=== PATIENT | female | born 1955 | race African-American/Black ===

== ENCOUNTER 2016-11-18 12:39 | Inpatient (IN) | payer OTHER ==
[2016-11-18 13:38] VITALS: BMI 25.4
--- NOTE | 2016-11-18 15:39 | HP ---
COWS - Scale Resting Pulse: 0= [place] 80 or Below Sweatin=Flushed/Facial Moisture Restless Observation: 0= Sits Still Pupil Size: 0= Normal to Room Light Bone or Joint Aches: 2= Severe Diffuse Aches Runny Nose/ Eye Tearin= Runny Nose/Eyes GI Upset > 30mins: 1= Stomach Cramp Tremor Observation: 2= Slight Tremor Visible Yawning Observation: 2= >3x During Session Anxiety or Irritability: 2=Irritable/Anxious Goose Flesh Skin: 3=Piloerection COWS Score: 16 CIWA Score - CIWA Score Nausea/Vomitin-No Nausea/No Vomiting Muscle Tremors: 4-Moderate,w/Arms Extend Anxiety: 4-Mod. Anxious/Guarded Agitation: 4-Moderately Restless Paroxysmal Sweats: 3 Orientation: 0-Oriented Tacttile Disturbances: 0-None Auditory Disturbances: 0-None Visual Disturbances: 0-None Headache: 1-Very Mild CIWA-Ar Total Score: 16 Admission ROS BHS - HPI Chief Complaint: I need to stop using and get cleaned. Allergies/Adverse Reactions: Allergies Allergy/AdvReac Type Severity Reaction Status Date / Time No Known Allergies Allergy Verified 11/18/16 13:57 History of Present Illness: pt is a 60yr old female with a history of alcohol and heroin dependence seeking detox for treatment. Exam Limitations: No Limitations - Ebola screening Have you traveled outside of the country in the last 21 days: No Have you had contact with anyone from an Ebola affected area: No Have you been sick,other than usual withdrawal symptoms: No Do you have a fever: No - Review of Systems Constitutional: Chills, Diaphoresis, Loss of Appetite, Changes in sleep, Unintentional Wgt. Loss EENT: reports: Tearing, Nose Congestion Respiratory: reports: No Symptoms reported Cardiac: reports: Syncope GI: reports: Constipated, Diarrhea, Nausea, Poor Appetite, Poor Fluid Intake, Indigestion : reports: No Symptoms Reported Musculoskeletal: reports: Back Pain, Joint Pain Integumentary: reports: Flushing, Sweating Neuro: reports: Headache, Tingling, Tremors Endocrine: reports: Excessive Sweating, Flushing, Intolerance to Cold, Intolerance to Heat Hematology: reports: No Symptoms Reported Psychiatric: reports: Judgement Intact, Orientated x3, Agitated, Anxious Other Systems: Reviewed and Negative Patient History - Patient Medical History Hx Anemia: No Hx Asthma: Yes Hx Chronic Obstructive Pulmonary Disease (COPD): No Hx Cancer: No Hx Cardiac Disorders: No Hx Congestive Heart Failure: No Hx Hypertension: Yes Hx Hypercholesterolemia: Yes Hx Pacemaker: No HX Cerebrovascular Accident: No Hx Seizures: No Hx Dementia: No Hx Diabetes: No Hx Gastrointestinal Disorders: No Hx Liver Disease: No Hx Genitourinary Disorders: No Hx Sexually Transmitted Disorders: No Hx Renal Disease (ESRD): No Hx Thyroid Disease: No Hx Human Immunodeficiency Virus (HIV): No (negative) Hx Hepatitis C: No (negative) Hx Depression: Yes Hx Suicide Attempt: Yes (10 yrs ago) Hx Bipolar Disorder: Yes Hx Schizophrenia: No - Patient Surgical History Past Surgical History: No - PPD History Previous Implant?: Yes Documented Results: Negative w/o proof Implanted On Prior [facility] Admission?: No PPD to be Administered?: Yes - Reproductive History Patient is a Female of Child Bearing Age (11 -55 yrs old): Yes LMP comment: age 56 Patient : No - Smoking Cessation Smoking history: Current every day smoker Aproximately how many cigarettes per day: 20 Hx Chewing Tobacco Use: No Initiated information on smoking cessation: Yes 'Breaking Loose' booklet given: 11/18/16 - Substance & Tx. History Hx Alcohol Use: Yes Hx Substance Use: Yes Substance Use Type: Alcohol, Heroin - Substances Abused Heroin Route: Inhalation Frequency: Daily Amount used: 1 bag Age of first use: 60 Date of Last Use: 11/17/16 Alcohol Route: Oral Frequency: Daily Amount used: beer(6-24 oz cans) Age of first use: 15 Date of Last Use: 11/18/16 Family Disease History - Family Disease History Family Disease History: Diabetes: Father (), CA: Mother (breast CA ), Other: Father Admission Physical Exam BHS - Vital Signs Vital Signs: Vital Signs - 24 hr 11/18/16 13:33 Temperature 97 F L Pulse Rate 76 Respiratory 20 Rate Blood Pressure 126/80 - Physical General Appearance: Yes: Appropriately Dressed, Moderate Distress, Thin, Tremorous, Irritable, Sweating, Anxious HEENTM: Yes: Hearing grossly Normal, Normal Voice, Nasal Congestion Respiratory: Yes: Lungs Clear, Normal Breath Sounds, No Respiratory Distress Neck: Yes: No masses,lesions,Nodules Breast: Yes: Within Normal Limits Cardiology: Yes: Regular Rhythm, Regular Rate, S1, S2 Abdominal: Yes: Normal Bowel Sounds, Non Tender, Soft Genitourinary: Yes: Within Normal Limits Back: Yes: Normal Inspection Musculoskeletal: Yes: full range of Motion, Back pain Extremities: Yes: Normal Capillary Refill, Normal Inspection, Non-Tender, Tremors Neurological: Yes: Fully Oriented, Alert, Normal Response Integumentary: Yes: Normal Color, Diaphoresis Lymphatic: Yes: Within Normal Limits - Diagnostic (1) Alcohol dependence with uncomplicated withdrawal Current Visit: Yes Status: Chronic (2) Asthma Current Visit: Yes Status: Chronic Qualifiers: Asthma severity: mild intermittent Asthma complication type: uncomplicated Qualified Code(s): J45.20 - Mild intermittent asthma, uncomplicated (3) Hyperlipidemia Current Visit: Yes Status: Chronic Qualifiers: Hyperlipidemia type: pure hypercholesterolemia Qualified Code(s): E78.00 - Pure hypercholesterolemia, unspecified; E78.0 - Pure hypercholesterolemia (4) Hypertension Current Visit: Yes Status: Chronic Qualifiers: Hypertension type: essential hypertension Qualified Code(s): I10 - Essential (primary) hypertension (5) Nicotine dependence Current Visit: Yes Status: Chronic Qualifiers: Nicotine product type: cigarettes Substance use status: uncomplicated Qualified Code(s): F17.210 - Nicotine dependence, cigarettes, uncomplicated (6) Opioid dependence with withdrawal Current Visit: Yes Status: Chronic Comment: even though pt has been using one bag daily she seems to be urging for the need to use heroin so she needs the methadone for detox. Cleared for Admission [facility] - Detox or Rehab [facility] Level of Care: Medically Managed Detox Regimen/Protocol: Methadone/Librium [facility] Breath Alcohol Content Breath Alcohol Content: 0.016 Urine Pregancy Test - Result Urine Test Results: Negative- NO Line Present Urine Drug Screen - Results Drug Screen Negative: No Urine Drug Screen Results: SEVEN-Cocaine, OPI-Opiates, MTD-Methadone, OXY- Oxycodone
[2016-11-18] MEDS ORDERED: MAG HYDROX/AL HYDROX/SIMETH 30 ML UNIT-DOSE CUP PO PRN (15:47)
[2016-11-18] MEDS ORDERED: MAGNESIUM CITRATE 300 ML BOTTLE PO PRN (15:47)
[2016-11-18] MEDS ORDERED: IBUPROFEN 400 MG TABLET (FP) PO PRN (15:47)
[2016-11-18] MEDS ORDERED: ACETAMINOPHEN 325 MG TABLET (FP) PO PRN (15:47)
[2016-11-18] MEDS ORDERED: MENTHOL/PHENOL 1 EACH UD MM PRN (15:47)
[2016-11-18] MEDS ORDERED: METHADONE HCL 10 MG TABLET (FOR DETOX USE ONLY) PO ONE ×2 (15:47→23:00)
[2016-11-18] MEDS ORDERED: chlordiazePOXIDE HCL 25 MG CAPSULE PO PRN (15:47)
[2016-11-18] MEDS ORDERED: guaiFENesin/D-METHORPHAN HB 10 ML UNIT-DOSE CUPS PO PRN (15:47)
[2016-11-18] MEDS ORDERED: MAGNESIUM HYDROX 2400MG/30ML ORAL SUSPENSION 30 ML CUP PO PRN (15:47)
[2016-11-18] MEDS ORDERED: LOPERAMIDE HCL 2 MG CAPSULE PO PRN (15:47)
[2016-11-18] MEDS ORDERED: P-EPHED 60MG/TRIPROLIDI 2.5MG TABLET PO PRN (15:47)
[2016-11-18] MEDS ORDERED: ALBUTEROL SO4 6.7 GM HFA INHALER IH PRN (15:51)
[2016-11-18] MEDS ORDERED: chlordiazePOXIDE HCL 25 MG CAPSULE PO ONE (16:00)
[2016-11-18] MEDS: chlordiazePOXIDE HCL 25 MG CAPSULE PO SCH ×2 (18:37→23:04)
[2016-11-18 19:58] LABS: URINE APPEARANCE CLEAR; URINE BILIRUBIN NEGATIVE (NEGATIVE); URINE COLOR LTYELLOW; URINE GLUCOSE (UA) NEGATIVE (NEGATIVE); URINE KETONE NEGATIVE (NEGATIVE); URINE LEUK ESTERASE NEGATIVE (NEGATIVE); URINE NITRITE POSITIVE (NEGATIVE); URINE PROTEIN NEGATIVE (NEGATIVE); URINE UROBILINOGEN NEGATIVE E.U./dl (0.2-1.0)
[2016-11-18 20:10] LABS: URINE BLOOD 1+ (NEGATIVE)
[2016-11-18 20:12] LABS: URINE BACTERIA MANY /hpf (NONE SEEN); URINE MUCUS RARE; URINE RBC 11 /hpf (0-3); URINE WBC 1 /hpf (3-5)
[2016-11-18] MEDS: ATORVASTATIN CA 40 MG TABLET (FP) PO SCH (23:03)
[2016-11-18] MEDS: BUDESONIDE/FORMETEROL FUMARATE 80/4.5 mcg INHALER IH SCH (23:03)
[2016-11-18] MEDS: THIAMINE HCL 100 MG TABLET (FP) PO SCH (23:07)
[2016-11-19] MEDS: chlordiazePOXIDE HCL 25 MG CAPSULE PO SCH ×4 (06:03→23:19)
[2016-11-19] MEDS ORDERED: METHADONE HCL 10 MG TABLET (FOR DETOX USE ONLY) PO SCH (10:00)
[2016-11-19 10:35] LABS: MCH 30.8 pg (25.7-33.7); MCHC 33.1 g/dl (32.0-36.0); MEAN CELL VOLUME 93.1 fl (80-96); MEAN PLT VOLUME 9.1 fl (7.5-11.1); PLATELET COUNT 271 K/MM3 (134-434); RDW 13.1 % (11.6-15.6); WHITE BLOOD COUNT 5.5 K/mm3 (4.0-10.0)
[2016-11-19] MEDS: BUDESONIDE/FORMETEROL FUMARATE 80/4.5 mcg INHALER IH SCH ×2 (11:47→23:19)
[2016-11-19] MEDS: PRENATAL VITAMINS W/ FOLIC ACID TABLET (FP) PO SCH (11:48)
[2016-11-19] MEDS: amLODIPine BESYLATE 10 MG TABLET (FP) PO SCH (11:48)
[2016-11-19] MEDS: NICOTINE 21 MG/24 HOURS TOPICAL PATCH TD SCH (11:49)
[2016-11-19 11:56] LABS: ALBUMIN 2.9 g/dl (3.4-5.0); ANION GAP 8 (8-16); CALCIUM 8.9 mg/dL (8.5-10.1); CO2 27 mmol/L (21-32); CREATININE 0.8 mg/dL (0.55-1.02); GLUCOSE,RANDOM 132 mg/dL (74-106); SGOT/AST 39 U/L (15-37); SGPT/ALT 26 U/L (12-78)
[2016-11-19 11:57] LABS: ALK PHOS 67 U/L (45-117); BILIRUBIN,TOTAL 0.4 mg/dL (0.2-1.0); TOT PROT 6.3 g/dl (6.4-8.2)
--- NOTE | 2016-11-19 14:53 | PN ---
S CIWA - CIWA Score Nausea/Vomitin Muscle Tremors: 3 Anxiety: 3 Agitation: 2 Paroxysmal Sweats: 1-Minimal Palms Moist Orientation: 0-Oriented Tacttile Disturbances: 1-Very Mild Itch/Numbness Auditory Disturbances: 1-Very Mild Visual Disturbances: 1-Very Mild Sensitivity Headache: 2-Mild CIWA-Ar Total Score: 17 BHS COWS - Scale Resting Pulse: 0= [place] 80 or Below Sweatin= Chills/Flushing Restless Observation: 3= Extraneous Movement Pupil Size: 1= Pupils >than Normal Bone or Joint Aches: 2= Severe Diffuse Aches Runny Nose/ Eye Tearin= Nasal Congestion GI Upset > 30mins: 3= Vomiting/Diarrhea Tremor Observation of Outstretched Hands: 2= Slight Tremor Visible Yawning Observation: 1= 1-2x During Session Anxiety or Irritability: 2=Irritable/Anxious Goose Flesh Skin: 0=Smooth Skin COWS Score: 16 BHS Progress Note (SOAP) Subjective: ALERT,IRRITABLE,ANXIOUS,INTERRUPTED SLEEP,PAIN IN THE BODY,JOINT AND BACK Objective: 11/19/16 14:53 Vital Signs Temperature 98.1 F 11/19/16 14:29 Pulse Rate 79 11/19/16 14:29 Respiratory Rate 18 11/19/16 14:29 Blood Pressure 126/67 11/19/16 14:29 O2 Sat by Pulse Oximetry (%) EKG NSR Laboratory Last Values WBC 5.5 K/mm3 (4.0-10.0) 11/19/16 08:13 RBC 4.23 M/mm3 (3.60-5.2) 11/19/16 08:13 Hgb 13.0 GM/dL (10.7-15.3) 11/19/16 08:13 Hct 39.4 % (32.4-45.2) 11/19/16 08:13 MCV 93.1 fl (80-96) 11/19/16 08:13 MCHC 33.1 g/dl (32.0-36.0) 11/19/16 08:13 RDW 13.1 % (11.6-15.6) 11/19/16 08:13 Plt Count 271 K/MM3 (134-434) 11/19/16 08:13 MPV 9.1 fl (7.5-11.1) 11/19/16 08:13 Sodium 140 mmol/L (136-145) 11/19/16 08:13 Potassium 3.9 mmol/L (3.5-5.1) 11/19/16 08:13 Chloride 105 mmol/L (98-107) 11/19/16 08:13 Carbon Dioxide 27 mmol/L (21-32) 11/19/16 08:13 Anion Gap 8 (8-16) 11/19/16 08:13 BUN 11 mg/dL (7-18) 11/19/16 08:13 Creatinine 0.8 mg/dL (0.55-1.02) 11/19/16 08:13 Creat Clearance w eGFR > 60 (>60) 11/19/16 08:13 Random Glucose 132 mg/dL (74-106) H 11/19/16 08:13 Calcium 8.9 mg/dL (8.5-10.1) 11/19/16 08:13 Total Bilirubin 0.4 mg/dL (0.2-1.0) 11/19/16 08:13 AST 39 U/L (15-37) H 11/19/16 08:13 ALT 26 U/L (12-78) 11/19/16 08:13 Alkaline Phosphatase 67 U/L (45-117) 11/19/16 08:13 Total Protein 6.3 g/dl (6.4-8.2) L 11/19/16 08:13 Albumin 2.9 g/dl (3.4-5.0) L 11/19/16 08:13 Urine Color Ltyellow 11/18/16 19:36 Urine Appearance Clear 11/18/16 19:36 Urine pH 5.0 (5.0-8.0) 11/18/16 19:36 Ur Specific [place] 1.004 (1.001-1.035) 11/18/16 19:36 Urine Protein Negative (NEGATIVE) 11/18/16 19:36 Urine Glucose (UA) Negative (NEGATIVE) 11/18/16 19:36 Urine Ketones Negative (NEGATIVE) 11/18/16 19:36 Urine Blood 1+ (NEGATIVE) H 11/18/16 19:36 Urine Nitrite Positive (NEGATIVE) 11/18/16 19:36 Urine Bilirubin Negative (NEGATIVE) 11/18/16 19:36 Urine Urobilinogen Negative E.U./dl (0.2-1.0) 11/18/16 19:36 Ur Leukocyte Esterase Negative (NEGATIVE) 11/18/16 19:36 Urine RBC 11 /hpf (0-3) 11/18/16 19:36 Urine WBC 1 /hpf (3-5) 11/18/16 19:36 Ur Epithelial Cells Rare /hpf (FEW) 11/18/16 19:36 Urine Bacteria Many /hpf (NONE SEEN) 11/18/16 19:36 Urine Mucus Rare 11/18/16 19:36 Assessment: 11/19/16 14:54 WITHDRAWAL SYMPTOM Plan: CONTINUE DETOX
--- NOTE | 2016-11-19 18:26 | CONSULT ---
[facility] Psychiatric Consult - Data Date of interview: 11/19/16 Admission source: [facility] Identifying data: First admission to [facility] for this 60 y/o AA female seeking detox treatment for heroin,alcohol and cocaine dependence.Patient is single,a mother of one,homeless,unemployed adnd supported on SSD benefits. Substance Abuse History: - Smoking Cessation. Smoking history: Current every day smoker. Aproximately how many cigarettes per day: 20. Hx Chewing Tobacco Use: No. Initiated information on smoking cessation: Yes. 'Breaking Loose' booklet given: 11/18/16. - Substance & Tx. History. Hx Alcohol Use: Yes. Hx Substance Use: Yes. Substance Use Type: Alcohol, Heroin. - Substances Abused. Heroin. Route: Inhalation. Frequency: Daily. Amount used: 1 bag. Age of first use: 60. Date of Last Use: 11/17/16. Alcohol. Route: Oral. Frequency: Daily. Amount used: beer(6-24 oz cans). Age of first use: 15. Date of Last Use: 11/18/16. Confirmed by patient. Medical History: Bronchial asthma,hypertension and hypercholesterolemia. Psychiatric History: History of 2-4 psychiatric hospitalizations at [facility].Diagnosed with Bipolar Disorder.Patient is followed at the [facility] ( abbreviation's exact meaning not recalled by patient) mental health clinic in [facility].Ms Villanueva states that her psychiatrist was " waiting for an authorization to start me on abilify." No reported history of suicide attempts. Physical/Sexual Abuse/Trauma History: Patient denies. Additional Comment: Urine Drug Screen Results: SEVEN-Cocaine, OPI-Opiates, MTD- Methadone, OXY-Oxycodone.Noted. Mental Status Exam - Mental Status Exam Alert and Oriented to: Time, Place, Person Cognitive Function: Good Patient Appearance: Unkempt, Disheveled Mood: Apprehensive, Hopeful Affect: Normal Range Patient Behavior: Fatigued, Cooperative Speech Pattern: Clear Voice Loudness: Normal Thought Process: Goal Oriented Thought Disorder: Not Present Hallucinations: Denies Suicidal Ideation: Denies Homicidal Ideation: Denies Insight/Judgement: Poor Sleep: Fair Appetite: Good Muscle strength/Tone: Normal Gait/Station: Normal Psychiatric Findings - Problem List ([place] 1, 2,3) (1) Alcohol dependence with uncomplicated withdrawal Current Visit: Yes Status: Acute (2) Opioid dependence with withdrawal Current Visit: Yes Status: Acute Comment: even though pt has been using one bag daily she seems to be urging for the need to use heroin so she needs the methadone for detox. (3) Nicotine dependence Current Visit: Yes Status: Acute Qualifiers: Nicotine product type: cigarettes Substance use status: uncomplicated Qualified Code(s): F17.210 - Nicotine dependence, cigarettes, uncomplicated (4) Substance induced mood disorder Current Visit: Yes Status: Acute (5) Asthma Current Visit: Yes Status: Chronic Qualifiers: Asthma severity: mild intermittent Asthma complication type: uncomplicated Qualified Code(s): J45.20 - Mild intermittent asthma, uncomplicated (6) Hyperlipidemia Current Visit: Yes Status: Chronic Qualifiers: Hyperlipidemia type: pure hypercholesterolemia Qualified Code(s): E78.00 - Pure hypercholesterolemia, unspecified; E78.0 - Pure hypercholesterolemia (7) Hypertension Current Visit: Yes Status: Chronic Qualifiers: Hypertension type: essential hypertension Qualified Code(s): I10 - Essential (primary) hypertension - Initial Treatment Plan Initial Treatment Plan: Psychoeducation.Detoxification.Observation.
[2016-11-19] MEDS: THIAMINE HCL 100 MG TABLET (FP) PO SCH (23:19)
[2016-11-19] MEDS: diphenhydrAMINE HCL 50 MG CAPSULE PO PRN (23:19)
[2016-11-19] MEDS: ATORVASTATIN CA 40 MG TABLET (FP) PO SCH (23:19)
[2016-11-20] MEDS: chlordiazePOXIDE HCL 25 MG CAPSULE PO SCH ×2 (06:11→10:47)
[2016-11-20] MEDS: TOLNAFTATE 1% CREAM 15 GM TUBE TP SCH ×2 (10:46→22:44)
[2016-11-20] MEDS: PRENATAL VITAMINS W/ FOLIC ACID TABLET (FP) PO SCH (10:46)
[2016-11-20] MEDS: amLODIPine BESYLATE 10 MG TABLET (FP) PO SCH (10:46)
[2016-11-20] MEDS: BUDESONIDE/FORMETEROL FUMARATE 80/4.5 mcg INHALER IH SCH ×2 (10:46→22:44)
[2016-11-20] MEDS: METHADONE HCL 5 MG TABLET (FOR DETOX USE ONLY) PO SCH (10:47)
[2016-11-20] MEDS: NICOTINE 21 MG/24 HOURS TOPICAL PATCH TD SCH (10:47)
--- NOTE | 2016-11-20 11:38 | EKG ---
Test Reason : Blood Pressure : / mmHG Vent. Rate : 059 BPM Atrial Rate : 059 BPM P-R Int : 136 ms QRS Dur : 082 ms QT Int : 426 ms P-R-T Axes : -13 017 047 degrees QTc Int : 421 ms SINUS BRADYCARDIA WITH SINUS ARRHYTHMIA NONSPECIFIC ST ABNORMALITY ABNORMAL ECG WHEN COMPARED WITH ECG OF 18-NOV-2016 17:33, NO SIGNIFICANT CHANGE WAS FOUND Confirmed by DARA WARNER MD ([id number]) on 11/20/2016 11:37:53 AM Referred By: Confirmed By:DARA WARNER MD
--- NOTE | 2016-11-20 11:40 | EKG ---
Test Reason : Blood Pressure : / mmHG Vent. Rate : 067 BPM Atrial Rate : 067 BPM P-R Int : 166 ms QRS Dur : 084 ms QT Int : 416 ms P-R-T Axes : 011 015 076 degrees QTc Int : 439 ms POOR DATA QUALITY, INTERPRETATION MAY BE ADVERSELY AFFECTED NORMAL SINUS RHYTHM MINIMAL VOLTAGE CRITERIA FOR LVH, MAY BE NORMAL VARIANT NONSPECIFIC ST AND T WAVE ABNORMALITY ABNORMAL ECG NO PREVIOUS ECGS AVAILABLE Confirmed by ALANA LINDSEY, DARA ([id number]) on 11/20/2016 11:39:56 AM Referred By: Confirmed By:DARA WARNER MD
--- NOTE | 2016-11-20 13:18 | PN ---
S CIWA - CIWA Score Nausea/Vomitin Muscle Tremors: 3 Anxiety: 3 Agitation: 3 Paroxysmal Sweats: 2 Orientation: 0-Oriented Tacttile Disturbances: 1-Very Mild Itch/Numbness Auditory Disturbances: 1-Very Mild Visual Disturbances: 1-Very Mild Sensitivity Headache: 2-Mild CIWA-Ar Total Score: 19 BHS COWS - Scale Resting Pulse: 0= [place] 80 or Below Sweatin=Flushed/Facial Moisture Restless Observation: 3= Extraneous Movement Pupil Size: 1= Pupils >than Normal Bone or Joint Aches: 2= Severe Diffuse Aches Runny Nose/ Eye Tearin= Runny Nose/Eyes GI Upset > 30mins: 2= Nausea/Diarrhea Tremor Observation of Outstretched Hands: 2= Slight Tremor Visible Yawning Observation: 1= 1-2x During Session Anxiety or Irritability: 2=Irritable/Anxious Goose Flesh Skin: 0=Smooth Skin COWS Score: 17 S Progress Note (SOAP) Subjective: ALERT,IRRITABLE,ANXIOUS,INTERRUPTED SLEEP,PAIN IN THE BODY AND BACK Objective: 11/20/16 13:16 Vital Signs Temperature 96.8 F L 11/20/16 10:05 Pulse Rate 64 11/20/16 10:05 Respiratory Rate 16 11/20/16 10:05 Blood Pressure 137/75 11/20/16 10:05 O2 Sat by Pulse Oximetry (%) Laboratory Last Values WBC 5.5 K/mm3 (4.0-10.0) 11/19/16 08:13 RBC 4.23 M/mm3 (3.60-5.2) 11/19/16 08:13 Hgb 13.0 GM/dL (10.7-15.3) 11/19/16 08:13 Hct 39.4 % (32.4-45.2) 11/19/16 08:13 MCV 93.1 fl (80-96) 11/19/16 08:13 MCHC 33.1 g/dl (32.0-36.0) 11/19/16 08:13 RDW 13.1 % (11.6-15.6) 11/19/16 08:13 Plt Count 271 K/MM3 (134-434) 11/19/16 08:13 MPV 9.1 fl (7.5-11.1) 11/19/16 08:13 Sodium 140 mmol/L (136-145) 11/19/16 08:13 Potassium 3.9 mmol/L (3.5-5.1) 11/19/16 08:13 Chloride 105 mmol/L (98-107) 11/19/16 08:13 Carbon Dioxide 27 mmol/L (21-32) 11/19/16 08:13 Anion Gap 8 (8-16) 11/19/16 08:13 BUN 11 mg/dL (7-18) 11/19/16 08:13 Creatinine 0.8 mg/dL (0.55-1.02) 11/19/16 08:13 Creat Clearance w eGFR > 60 (>60) 11/19/16 08:13 Random Glucose 132 mg/dL (74-106) H 11/19/16 08:13 Calcium 8.9 mg/dL (8.5-10.1) 11/19/16 08:13 Total Bilirubin 0.4 mg/dL (0.2-1.0) 11/19/16 08:13 AST 39 U/L (15-37) H 11/19/16 08:13 ALT 26 U/L (12-78) 11/19/16 08:13 Alkaline Phosphatase 67 U/L (45-117) 11/19/16 08:13 Total Protein 6.3 g/dl (6.4-8.2) L 11/19/16 08:13 Albumin 2.9 g/dl (3.4-5.0) L 11/19/16 08:13 Urine Color Ltyellow 11/18/16 19:36 Urine Appearance Clear 11/18/16 19:36 Urine pH 5.0 (5.0-8.0) 11/18/16 19:36 Ur Specific [place] 1.004 (1.001-1.035) 11/18/16 19:36 Urine Protein Negative (NEGATIVE) 11/18/16 19:36 Urine Glucose (UA) Negative (NEGATIVE) 11/18/16 19:36 Urine Ketones Negative (NEGATIVE) 11/18/16 19:36 Urine Blood 1+ (NEGATIVE) H 11/18/16 19:36 Urine Nitrite Positive (NEGATIVE) 11/18/16 19:36 Urine Bilirubin Negative (NEGATIVE) 11/18/16 19:36 Urine Urobilinogen Negative E.U./dl (0.2-1.0) 11/18/16 19:36 Ur Leukocyte Esterase Negative (NEGATIVE) 11/18/16 19:36 Urine RBC 11 /hpf (0-3) 11/18/16 19:36 Urine WBC 1 /hpf (3-5) 11/18/16 19:36 Ur Epithelial Cells Rare /hpf (FEW) 11/18/16 19:36 Urine Bacteria Many /hpf (NONE SEEN) 11/18/16 19:36 Urine Mucus Rare 11/18/16 19:36 RPR Titer Nonreactive (NONREACTIVE) 11/19/16 08:13 Assessment: 11/20/16 13:16 WITHDRAWAL SYMPTOM Plan: CONTINUE DETOX,BGM MONITORING BGM 123
[2016-11-20] MEDS: chlordiazePOXIDE 5 MG CAPSULE PO SCH ×2 (17:25→22:46)
[2016-11-20] MEDS: NICOTINE POLACRILEX 4 MG GUM BC PRN ×2 (21:29→22:51)
[2016-11-20] MEDS ORDERED: ATORVASTATIN CA 20 MG TABLET (FP) ONE (21:30)
[2016-11-20] MEDS: ATORVASTATIN CA 40 MG TABLET (FP) PO SCH (22:46)
[2016-11-20] MEDS: THIAMINE HCL 100 MG TABLET (FP) PO SCH (22:46)
[2016-11-20] MEDS: diphenhydrAMINE HCL 50 MG CAPSULE PO PRN (22:48)
[2016-11-21] MEDS: chlordiazePOXIDE 5 MG CAPSULE PO SCH ×2 (05:40→10:39)
[2016-11-21] MEDS: NICOTINE POLACRILEX 4 MG GUM BC PRN ×5 (05:43→22:44)
--- NOTE | 2016-11-21 09:44 | PN ---
BHS Progress Note (SOAP) Subjective: constipation sweats interrupted sleep Objective: 11/21/16 09:43 Vital Signs Temperature 97.7 F 11/21/16 06:00 Pulse Rate 62 11/21/16 06:00 Respiratory Rate 16 11/21/16 06:00 Blood Pressure 94/71 11/21/16 06:00 O2 Sat by Pulse Oximetry (%) awake/alert ambulating no acute distress Assessment: 11/21/16 09:44 withdrawal sx Plan: continue detox increase fluids citroma prn visitril prn
[2016-11-21] MEDS: PRENATAL VITAMINS W/ FOLIC ACID TABLET (FP) PO SCH (10:39)
[2016-11-21] MEDS: amLODIPine BESYLATE 10 MG TABLET (FP) PO SCH (10:39)
[2016-11-21] MEDS: METHADONE HCL 5 MG TABLET (FOR DETOX USE ONLY) PO SCH (10:40)
[2016-11-21] MEDS: BUDESONIDE/FORMETEROL FUMARATE 80/4.5 mcg INHALER IH SCH ×2 (10:40→22:44)
[2016-11-21] MEDS: NICOTINE 21 MG/24 HOURS TOPICAL PATCH TD SCH (10:40)
[2016-11-21] MEDS: TOLNAFTATE 1% CREAM 15 GM TUBE TP SCH ×2 (10:43→22:43)
[2016-11-21] MEDS ORDERED: chlordiazePOXIDE 5 MG CAPSULE ONE ×2 (17:28→21:20)
[2016-11-21] MEDS: chlordiazePOXIDE HCL 10 MG CAPSULE PO SCH (17:29)
[2016-11-21] MEDS: hydrOXYzine PAMOATE 50 MG CAPSULE (FP) PO PRN (22:42)
[2016-11-21] MEDS: THIAMINE HCL 100 MG TABLET (FP) PO SCH (22:42)
[2016-11-21] MEDS: ATORVASTATIN CA 40 MG TABLET (FP) PO SCH (22:42)
[2016-11-22] MEDS: chlordiazePOXIDE HCL 10 MG CAPSULE PO SCH ×3 (00:27→10:54)
[2016-11-22] MEDS ORDERED: chlordiazePOXIDE 5 MG CAPSULE ONE (04:44)
[2016-11-22] MEDS: NICOTINE POLACRILEX 4 MG GUM BC PRN ×5 (05:25→21:49)
[2016-11-22] MEDS ORDERED: METHADONE HCL 10 MG TABLET (FOR DETOX USE ONLY) PO SCH (10:00)
[2016-11-22] MEDS: PRENATAL VITAMINS W/ FOLIC ACID TABLET (FP) PO SCH (10:53)
[2016-11-22] MEDS: NICOTINE 21 MG/24 HOURS TOPICAL PATCH TD SCH (10:53)
[2016-11-22] MEDS: amLODIPine BESYLATE 10 MG TABLET (FP) PO SCH (10:54)
[2016-11-22] MEDS: BUDESONIDE/FORMETEROL FUMARATE 80/4.5 mcg INHALER IH SCH ×2 (10:54→22:35)
[2016-11-22] MEDS: TOLNAFTATE 1% CREAM 15 GM TUBE TP SCH ×2 (10:55→22:35)
--- NOTE | 2016-11-22 11:53 | PN ---
BHS Progress Note (SOAP) Subjective: feeling good but interrupted sleep Objective: 11/22/16 11:51 Vital Signs Temperature 97.7 F 11/22/16 11:28 Pulse Rate 71 11/22/16 11:28 Respiratory Rate 18 11/22/16 11:28 Blood Pressure 125/70 11/22/16 11:28 O2 Sat by Pulse Oximetry (%) Laboratory Tests 11/18/16 11/19/16 11/19/16 19:36 08:13 08:13 WBC 5.5 RBC 4.23 Hgb 13.0 Hct 39.4 MCV 93.1 MCHC 33.1 RDW 13.1 Plt Count 271 MPV 9.1 Sodium 140 Potassium 3.9 Chloride 105 Carbon Dioxide 27 Anion Gap 8 BUN 11 Creatinine 0.8 Creat Clearance w eGFR > 60 POC Glucometer Random Glucose 132 H Calcium 8.9 Total Bilirubin 0.4 AST 39 H ALT 26 Alkaline Phosphatase 67 Total Protein 6.3 L Albumin 2.9 L Urine Color Ltyellow Urine Appearance Clear Urine pH 5.0 Ur Specific [place] 1.004 Urine Protein Negative Urine Glucose (UA) Negative Urine Ketones Negative Urine Blood 1+ H Urine Nitrite Positive Urine Bilirubin Negative Urine Urobilinogen Negative Ur Leukocyte Esterase Negative Urine RBC 11 Urine WBC 1 Ur Epithelial Cells Rare Urine Bacteria Many Urine Mucus Rare RPR Titer 11/19/16 11/20/16 11/21/16 08:13 06:17 05:39 WBC RBC Hgb Hct MCV MCHC RDW Plt Count MPV Sodium Potassium Chloride Carbon Dioxide Anion Gap BUN Creatinine Creat Clearance w eGFR POC Glucometer 123 106 Random Glucose Calcium Total Bilirubin AST ALT Alkaline Phosphatase Total Protein Albumin Urine Color Urine Appearance Urine pH Ur Specific [place] Urine Protein Urine Glucose (UA) Urine Ketones Urine Blood Urine Nitrite Urine Bilirubin Urine Urobilinogen Ur Leukocyte Esterase Urine RBC Urine WBC Ur Epithelial Cells Urine Bacteria Urine Mucus RPR Titer Nonreactive 11/22/16 06:53 WBC RBC Hgb Hct MCV MCHC RDW Plt Count MPV Sodium Potassium Chloride Carbon Dioxide Anion Gap BUN Creatinine Creat Clearance w eGFR POC Glucometer 138 Random Glucose Calcium Total Bilirubin AST ALT Alkaline Phosphatase Total Protein Albumin Urine Color Urine Appearance Urine pH Ur Specific [place] Urine Protein Urine Glucose (UA) Urine Ketones Urine Blood Urine Nitrite Urine Bilirubin Urine Urobilinogen Ur Leukocyte Esterase Urine RBC Urine WBC Ur Epithelial Cells Urine Bacteria Urine Mucus RPR Titer pt aox3 in nad ambulating Assessment: 11/22/16 11:52 withdrawal sx;s insomnia Plan: cont. detox increase fluids d/c in am ambien 10mg hs
[2016-11-22] MEDS: hydrOXYzine PAMOATE 50 MG CAPSULE (FP) PO PRN (16:49)
[2016-11-22] MEDS ORDERED: ZOLPIDEM TARTRATE 10 MG TABLET (PARK CARE ONLY) PO ONE (22:00)
[2016-11-22] MEDS: ATORVASTATIN CA 40 MG TABLET (FP) PO SCH (22:34)
[2016-11-22] MEDS: THIAMINE HCL 100 MG TABLET (FP) PO SCH (22:34)
[2016-11-23] MEDS: hydrOXYzine PAMOATE 50 MG CAPSULE (FP) PO PRN (03:31)
[2016-11-23] MEDS: NICOTINE POLACRILEX 4 MG GUM BC PRN (04:59)
[2016-11-23] MEDS ORDERED: METHADONE HCL 5 MG TABLET (FOR DETOX USE ONLY) PO SCH (06:00)
[2016-11-23 06:21] VITALS: BP 125/65; PULSE 77; TEMP 99.7
--- NOTE | 2016-11-23 08:34 | DS ---
[facility] Detox Discharge Summary Admission Date: 11/18/16 Discharge Date: 11/23/16 - History Present History: Alcohol Dependence, Opioid Dependence - Physical Exam Results Vital Signs: Vital Signs Temperature 99.7 F H 11/23/16 06:00 Pulse Rate 77 11/23/16 06:00 Respiratory Rate 16 11/23/16 06:00 Blood Pressure 125/65 11/23/16 06:00 O2 Sat by Pulse Oximetry (%) - Treatment Hospital Course: Detox Protocol Followed, Detoxed Safely, Responded well, Discharged Condition Good, Rehab Referral Accepted - Medication Discharge Medications: Ambulatory Orders Albuterol Sulfate Inhaler - [Ventolin Hfa Inhaler -] 1 - 2 inh PO Q4H PRN Amlodipine Besylate [Norvasc -] 10 mg PO DAILY 11/18/16 Diphenhydramine [Benadryl -] 50 mg PO HS 11/18/16 Fluticasone/Salmeterol [Advair 250-50 Diskus] 1 each IH DAILY 11/18/16 Nicotine Polacrilex [Nicotine Lozenge] 2 mg PO Q2H 11/18/16 Pravastatin Sodium [Pravachol (Nf)] 40 mg PO HS 11/18/16 Venlafaxine HCl ER [Effexor Xr -] 150 mg PO DAILY 11/18/16 - Diagnosis (1) Alcohol dependence with uncomplicated withdrawal Current Visit: Yes Status: Chronic (2) Asthma Current Visit: Yes Status: Chronic Qualifiers: Asthma severity: mild intermittent Asthma complication type: uncomplicated Qualified Code(s): J45.20 - Mild intermittent asthma, uncomplicated (3) Hyperlipidemia Current Visit: Yes Status: Chronic Qualifiers: Hyperlipidemia type: pure hypercholesterolemia Qualified Code(s): E78.00 - Pure hypercholesterolemia, unspecified; E78.0 - Pure hypercholesterolemia (4) Hypertension Current Visit: Yes Status: Chronic Qualifiers: Hypertension type: essential hypertension Qualified Code(s): I10 - Essential (primary) hypertension (5) Nicotine dependence Current Visit: Yes Status: Chronic Qualifiers: Nicotine product type: cigarettes Substance use status: uncomplicated Qualified Code(s): F17.210 - Nicotine dependence, cigarettes, uncomplicated (6) Opioid dependence with withdrawal Current Visit: Yes Status: Chronic - AMA Did Patient Leave Against Medical Advice: No
== END 2016-11-23 08:59 | disposition home or self-care (01) | DRG 773 ==
LOC: YASAS 12:39 → Y6N 15:02
PROVIDERS: ADMIT Internal Medicine Addiction Medicine; ATTEND Internal Medicine Addiction Medicine
PROC: HZ2ZZZZ Detoxification Services for Substance Abuse Treatment (ICD-10-PCS; principal; 2016-11-18)
DX: F11.23 Opioid dependence with withdrawal (principal); F10.230 Alcohol dependence with withdrawal, uncomplicated; F17.210 Nicotine dependence, cigarettes, uncomplicated; F19.24 Other psychoactive substance dependence with psychoactive substance-induced mood disorder; J45.20 Mild intermittent asthma, uncomplicated; E78.00 Pure hypercholesterolemia, unspecified; I10 Essential (primary) hypertension; G47.00 Insomnia, unspecified; Z91.5 Personal history of self-harm
CPT/HCPCS: 36415; 80053; 81003; 81015; 85027; 86593; 93005; 93010

== ENCOUNTER 2017-04-30 23:09 | Inpatient (IN) | payer OTHER ==
[~2017-04-30 23:09] MED LIST: METHADONE HCL 10 MG TABLET (FOR DETOX USE ONLY) PO ONE
--- NOTE | 2017-04-30 23:15 | HP ---
COWS - Scale Resting Pulse: 0= [place] 80 or Below Sweatin=Flushed/Facial Moisture Restless Observation: 1= Difficult to Sit Still Pupil Size: 1= Pupils >than Normal Bone or Joint Aches: 2= Severe Diffuse Aches Runny Nose/ Eye Tearin= Constantly Teary/Runny GI Upset > 30mins: 2= Nausea/Diarrhea Tremor Observation: 2= Slight Tremor Visible Yawning Observation: 0= None Anxiety or Irritability: 2=Irritable/Anxious Goose Flesh Skin: 0=Smooth Skin COWS Score: 16 CIWA Score - CIWA Score Nausea/Vomitin Muscle Tremors: 3 Anxiety: 3 Agitation: 2 Paroxysmal Sweats: 3 Orientation: 0-Oriented Tacttile Disturbances: 2-Mild Itch/Numbness/Burn Auditory Disturbances: 2-Mild Harshness/Frighten Visual Disturbances: 1-Very Mild Sensitivity Headache: 2-Mild CIWA-Ar Total Score: 21 Admission ROS [facility] - HPI Chief Complaint: DEPENDENT ON ETOH, HEROIN AND OCC. COCAINE Allergies/Adverse Reactions: Allergies Allergy/AdvReac Type Severity Reaction Status Date / Time No Known Allergies Allergy Verified 11/18/16 13:57 History of Present Illness: THE PT. WAS SENT FROM [facility]. [facility]. FOR ADMISSION TO THE DETOX UNIT. Exam Limitations: No Limitations - Ebola screening Have you traveled outside of the country in the last 21 days: No Have you had contact with anyone from an Ebola affected area: No Have you been sick,other than usual withdrawal symptoms: No Do you have a fever: No - Review of Systems Constitutional: See HPI, Loss of Appetite, Malaise, Weakness EENT: reports: See HPI Respiratory: reports: See HPI Cardiac: reports: See HPI GI: reports: See HPI, Diarrhea, Nausea, Poor Appetite, Poor Fluid Intake, Vomiting, Indigestion, Abdominal cramping : reports: See HPI Musculoskeletal: reports: See HPI, Muscle Pain, Muscle Weakness Integumentary: reports: See HPI, Sweating Neuro: reports: See HPI, Headache, Tremors, Weakness Endocrine: reports: See HPI Hematology: reports: See HPI Psychiatric: reports: Judgement Intact, Orientated x3, Anxious, Depressed Patient History - Patient Medical History Hx Anemia: No Hx Asthma: Yes Hx Chronic Obstructive Pulmonary Disease (COPD): No Hx Cancer: No Hx Cardiac Disorders: No Hx Congestive Heart Failure: No Hx Hypertension: Yes Hx Hypercholesterolemia: Yes Hx Pacemaker: No HX Cerebrovascular Accident: No Hx Seizures: No Hx Dementia: No Hx Diabetes: No Hx Gastrointestinal Disorders: No Hx Liver Disease: No Hx Genitourinary Disorders: No Hx Sexually Transmitted Disorders: No Hx Renal Disease (ESRD): No Hx Thyroid Disease: No Hx Human Immunodeficiency Virus (HIV): No (negative) Hx Hepatitis C: No (negative) Hx Suicide Attempt: Yes (10 yrs ago) Hx Bipolar Disorder: Yes (AND ANXIETY) Hx Schizophrenia: No - Patient Surgical History Past Surgical History: No - PPD History Date: 11/20/16 - Reproductive History Patient is a Female of Child Bearing Age (11 -55 yrs old): No LMP comment: WHEN SHE WAS 56 YRS. OLD Patient : No - Smoking Cessation Smoking history: Current every day smoker Aproximately how many cigarettes per day: 20 Hx Chewing Tobacco Use: No Initiated information on smoking cessation: Yes 'Breaking Loose' booklet given: 04/30/17 - Substance & Tx. History Hx Alcohol Use: Yes Hx Substance Use: Yes Substance Use Type: Alcohol, Cocaine, Heroin Hx Substance Use Treatment: Yes - Substances Abused Alcohol Route: Oral Frequency: Daily Amount used: 1X 6 PK/D Age of first use: 13 Date of Last Use: 04/30/17 Heroin Route: Inhalation Frequency: Daily Amount used: 2 B/D Age of first use: 60 Date of Last Use: 04/29/17 Cocaine Route: Smoking Frequency: 1-3 times last 30 days Amount used: $20/ONCE A MONTH Age of first use: 20 Date of Last Use: 04/28/17 Family Disease History - Family Disease History Family Disease History: Diabetes: Father (), CA: Mother (breast CA ), Other: Father Admission Physical Exam [facility] - Physical General Appearance: Yes: No Apparent Distress, Appropriately Dressed, Tremorous , Sweating, Anxious HEENTM: Yes: Hearing grossly Normal, Normocephalic, Normal Voice, CHAD, Pharynx Normal Respiratory: Yes: Chest Non-Tender, Lungs Clear, Normal Breath Sounds, No Respiratory Distress, No Accessory Muscle Use Neck: Yes: No masses,lesions,Nodules, Supple, Trachea in good position Breast: Yes: Breast Exam Deferred, Axillae without masses Cardiology: Yes: Regular Rhythm, Regular Rate, S1, S2 Abdominal: Yes: Normal Bowel Sounds, Non Tender, Flat, Soft Back: Yes: Normal Inspection Musculoskeletal: Yes: full range of Motion, Gait Steady, Pelvis Stable, Muscle Pain, Muscle weakness Extremities: Yes: Normal Capillary Refill, Normal Range of Motion, Non-Tender, Tremors 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 NML intact, Fully Oriented, Alert, Motor Strength 5/5, Normal Response, Depressed Affect Integumentary: Yes: Warm, Moist Lymphatic: Yes: Within Normal Limits - Diagnostic (1) Alcohol dependence with uncomplicated withdrawal Current Visit: Yes Status: Chronic (2) Asthma Current Visit: Yes Status: Chronic Qualifiers: Asthma severity: mild intermittent Asthma complication type: uncomplicated Qualified Code(s): J45.20 - Mild intermittent asthma, uncomplicated (3) Bipolar disorder Current Visit: Yes Status: Chronic Qualifiers: Active/Remission status: remission status unspecified Qualified Code (s): F31.9 - Bipolar disorder, unspecified Comment: Self-report (4) Hyperlipidemia Current Visit: No Status: Chronic Qualifiers: Hyperlipidemia type: pure hypercholesterolemia Qualified Code(s): E78.00 - Pure hypercholesterolemia, unspecified; E78.0 - Pure hypercholesterolemia (5) Hypertension Current Visit: Yes Status: Chronic Qualifiers: Hypertension type: essential hypertension Qualified Code(s): I10 - Essential (primary) hypertension (6) Nicotine dependence Current Visit: Yes Status: Chronic Qualifiers: Nicotine product type: cigarettes Substance use status: uncomplicated Qualified Code(s): F17.210 - Nicotine dependence, cigarettes, uncomplicated (7) Heroin dependence Current Visit: Yes Status: Chronic (8) Anxiety disorder Current Visit: Yes Status: Chronic Qualifiers: Anxiety disorder type: unspecified anxiety disorder Qualified Code(s ): F41.9 - Anxiety disorder, unspecified Cleared for Admission [facility] - Detox or Rehab S Level of Care: Medically Managed Detox Regimen/Protocol: Methadone/Librium [facility] Breath Alcohol Content Breath Alcohol Content: 0 Vital Signs - Vital Signs Vital Signs Refused: No Temperature: 97.4 F Temperature Source: Oral Pulse Rate: 65 Respiratory Rate: 16 Blood Pressure: 187/83 BP Location: Left Arm Blood Pressure Position: Sitting - Height Height: 5 ft 1 in - Weight Weight: 125 lb Weight Measurement Method: Estimated by Patient Body Mass Index (BMI): 23.6 Urine Pregancy Test - Test Device Lot Number: [id number] Expiration Date: 12/02/18 - Control Horizontal Line in Upper Control Window?: Yes - Result Urine Test Results: Negative- NO Line Present Urine Drug Screen - Test Device Lot Number: [id number] Expiration Date: 02/01/19 - Control Is Test Valid: Yes - Results Drug Screen Negative: No Urine Drug Screen Results: SEVEN-Cocaine, OPI-Opiates
[2017-04-30 23:21] VITALS: BMI 23.6
[2017-04-30] MEDS ORDERED: hydrOXYzine PAMOATE 25 MG CAPSULE (FP) PO PRN (23:29)
[2017-04-30] MEDS ORDERED: MAGNESIUM CITRATE 300 ML BOTTLE PO PRN (23:29)
[2017-04-30] MEDS ORDERED: LOPERAMIDE HCL 2 MG CAPSULE PO PRN (23:29)
[2017-04-30] MEDS ORDERED: MENTHOL/PHENOL 1 EACH UD MM PRN (23:29)
[2017-04-30] MEDS ORDERED: guaiFENesin/D-METHORPHAN HB 10 ML UNIT-DOSE CUPS PO PRN (23:29)
[2017-04-30] MEDS ORDERED: ACETAMINOPHEN 325 MG TABLET (FP) PO PRN (23:29)
[2017-04-30] MEDS ORDERED: diphenhydrAMINE HCL 50 MG CAPSULE PO PRN (23:29)
[2017-04-30] MEDS ORDERED: IBUPROFEN 400 MG TABLET (FP) PO PRN (23:29)
[2017-04-30] MEDS ORDERED: NICOTINE POLACRILEX 4 MG GUM BC PRN (23:29)
[2017-04-30] MEDS ORDERED: P-EPHED 60MG/TRIPROLIDI 2.5MG TABLET PO PRN (23:29)
[2017-04-30] MEDS ORDERED: chlordiazePOXIDE HCL 25 MG CAPSULE PO PRN (23:29)
[2017-04-30] MEDS ORDERED: ALBUTEROL SO4 6.7 GM HFA INHALER IH PRN (23:32)
[2017-04-30] MEDS ORDERED: diazePAM 5 MG TABLET PO PRN (23:32)
[2017-04-30] MEDS ORDERED: METHADONE HCL 10 MG TABLET (FOR DETOX USE ONLY) PO ONE (23:32)
[2017-04-30] MEDS: HYDROCHLOROTHIAZIDE 25 MG TABLET (FP) PO SCH (23:59)
[2017-05-01] MEDS: chlordiazePOXIDE HCL 25 MG CAPSULE PO SCH ×5 (05:13→22:07)
[2017-05-01] MEDS ORDERED: METHADONE HCL 10 MG TABLET (FOR DETOX USE ONLY) PO ONE (10:00)
[2017-05-01 10:06] LABS: MCH 30.5 pg (25.7-33.7); MCHC 32.7 g/dl (32.0-36.0); MEAN CELL VOLUME 93.1 fl (80-96); MEAN PLT VOLUME 9.1 fl (7.5-11.1); PLATELET COUNT 342 K/MM3 (134-434); RDW 13.7 % (11.6-15.6); WHITE BLOOD COUNT 7.2 K/mm3 (4.0-10.0)
--- NOTE | 2017-05-01 10:07 | PN ---
[facility] CIWA - CIWA Score Nausea/Vomitin Muscle Tremors: 3 Anxiety: 2 Agitation: 2 Paroxysmal Sweats: 1-Minimal Palms Moist Orientation: 0-Oriented Tacttile Disturbances: 1-Very Mild Itch/Numbness Auditory Disturbances: 1-Very Mild Visual Disturbances: 1-Very Mild Sensitivity Headache: 2-Mild CIWA-Ar Total Score: 16 [facility]HS COWS - Scale Resting Pulse: 0= [place] 80 or Below Sweatin= Chills/Flushing Restless Observation: 3= Extraneous Movement Pupil Size: 1= Pupils >than Normal Bone or Joint Aches: 2= Severe Diffuse Aches Runny Nose/ Eye Tearin= Runny Nose/Eyes GI Upset > 30mins: 2= Nausea/Diarrhea Tremor Observation of Outstretched Hands: 2= Slight Tremor Visible Yawning Observation: 1= 1-2x During Session Anxiety or Irritability: 2=Irritable/Anxious Goose Flesh Skin: 0=Smooth Skin COWS Score: 16 [facility] Progress Note (SOAP) Subjective: alert,irritable,anxious,interrupted sleep,pain in the body and back Objective: 05/01/17 10:04 Vital Signs Temperature 98.1 F 05/01/17 10:00 Pulse Rate 61 05/01/17 10:00 Respiratory Rate 18 05/01/17 10:00 Blood Pressure 153/96 05/01/17 10:00 O2 Sat by Pulse Oximetry (%) ekg sinus bradycardia 59/min no chest pain,no sob,no dizziness lab pending Assessment: 05/01/17 10:06 withdrawal symptom Plan: continue detox
[2017-05-01 10:18] LABS: ALBUMIN 2.7 g/dl (3.4-5.0); ANION GAP 5 (8-16); BILIRUBIN,TOTAL 0.4 mg/dL (0.2-1.0); CALCIUM 9.3 mg/dL (8.5-10.1); CO2 31 mmol/L (21-32); CREATININE 0.8 mg/dL (0.55-1.02); GLUCOSE,RANDOM 113 mg/dL (74-106); SGOT/AST 14 U/L (15-37); SGPT/ALT 17 U/L (12-78); TOT PROT 6.3 g/dl (6.4-8.2)
[2017-05-01 10:19] LABS: ALK PHOS 64 U/L (45-117)
[2017-05-01] MEDS: HYDROCHLOROTHIAZIDE 25 MG TABLET (FP) PO SCH (10:23)
[2017-05-01] MEDS: PRENATAL VITAMINS W/ FOLIC ACID TABLET (FP) PO SCH (10:23)
[2017-05-01] MEDS: NICOTINE 21 MG/24 HOURS TOPICAL PATCH TD SCH (10:26)
--- NOTE | 2017-05-01 10:52 | CONSULT ---
[facility] Psychiatric Consult - Data Date of interview: 05/01/17 Admission source: [facility] Identifying data: This is 61 years old female with history of Bipolar disorder intoxicated with: Alcoholm Opioids, Cocaine and Nicotine Substance Abuse History: - Smoking Cessation. Smoking history: Current every day smoker. Aproximately how many cigarettes per day: 20. Hx Chewing Tobacco Use: No. Initiated information on smoking cessation: Yes. 'Breaking Loose' booklet given: 04/30/17. - Substance & Tx. History. Hx Alcohol Use: Yes. Hx Substance Use: Yes. Substance Use Type: Alcohol, Cocaine, Heroin. Hx Substance Use Treatment: Yes. - Substances Abused. Alcohol. Route: Oral. Frequency: Daily. Amount used: 1X 6 PK/D. Age of first use: 13. Date of Last Use: 04/30/17. Heroin. Route: Inhalation. Frequency: Daily. Amount used: 2 B/D. Age of first use: 60. Date of Last Use: 04/29/17. Cocaine. Route: Smoking. Frequency: 1-3 times last 30 days. Amount used: $20/ONCE A MONTH. Age of first use: 20. Date of Last Use: 04/28/17 Medical History: Asthma, HTN, Hyperlipidemia Psychiatric History: Patient reports to carry Bipolar disorder with mopst recent psychiatric admsision on about 10 years ago, reports taking prior to admission: Effexor XR 150mjg poqd. Abilify 2mg poqd Physical/Sexual Abuse/Trauma History: Denies Additional Comment: Effexor XR 150mjg poqd. Abilify 2mg poqd Mental Status Exam - Mental Status Exam Alert and Oriented to: Person Cognitive Function: Fair Patient Appearance: Unkempt Mood: Sad Affect: Inappropriate Patient Behavior: Cooperative Speech Pattern: Appropriate Voice Loudness: Mildly Soft/Quiet Thought Process: Goal Oriented Thought Disorder: Being Controlled Hallucinations: Denies Suicidal Ideation: Denies Homicidal Ideation: Denies Insight/Judgement: Fair Sleep: Difficulty falling asleep Appetite: Weight loss Muscle strength/Tone: Normal Gait/Station: Normal Additional Comments: Effexor XR 150mjg poqd. Abilify 2mg poqd Psychiatric Findings - Problem List ([place] 1, 2,3) (1) Alcohol dependence with uncomplicated withdrawal Current Visit: Yes Status: Chronic (2) Anxiety disorder Current Visit: Yes Status: Chronic Qualifiers: Anxiety disorder type: unspecified anxiety disorder Qualified Code(s ): F41.9 - Anxiety disorder, unspecified (3) Bipolar disorder Current Visit: Yes Status: Suspected Qualifiers: Active/Remission status: remission status unspecified Qualified Code (s): F31.9 - Bipolar disorder, unspecified Comment: Self-report (4) Heroin dependence Current Visit: Yes Status: Chronic (5) Nicotine dependence Current Visit: Yes Status: Chronic Qualifiers: Nicotine product type: cigarettes Substance use status: uncomplicated Qualified Code(s): F17.210 - Nicotine dependence, cigarettes, uncomplicated (6) Substance induced mood disorder Current Visit: No Status: Acute (7) Opioid dependence with withdrawal Current Visit: No Status: Chronic Comment: even though pt has been using one bag daily she seems to be urging for the need to use heroin so she needs the methadone for detox. - Initial Treatment Plan Initial Treatment Plan: Effexor XR 150mjg poqd. Abilify 2mg poqd
[2017-05-01] MEDS ORDERED: cloNIDine HCL 0.1 MG TABLET PO ONE (11:00)
[2017-05-01] MEDS ORDERED: CYCLOBENZAPRINE HCL 10 MG TABLET (FP) PO ONE (11:00)
[2017-05-01] MEDS: ARIPiprazole 2 MG TABLET PO SCH (15:38)
[2017-05-01] MEDS: VENLAFAXINE HCL 150 MG E.R. CAPSULE PO SCH (15:38)
--- NOTE | 2017-05-01 19:06 | EKG ---
Test Reason : Blood Pressure : / mmHG Vent. Rate : 059 BPM Atrial Rate : 059 BPM P-R Int : 136 ms QRS Dur : 076 ms QT Int : 418 ms P-R-T Axes : -08 020 077 degrees QTc Int : 413 ms SINUS BRADYCARDIA OTHERWISE NORMAL ECG WHEN COMPARED WITH ECG OF 19-NOV-2016 07:08, NO SIGNIFICANT CHANGE WAS FOUND Confirmed by SIMRAN ROGERS MD ([id number]) on 05/01/2017 7:06:16 PM Referred By: Confirmed By:SIMRAN ROGERS MD
[2017-05-01] MEDS: cloNIDine HCL 0.1 MG TABLET PO SCH (22:06)
[2017-05-01] MEDS: THIAMINE HCL 100 MG TABLET (FP) PO SCH (22:07)
[2017-05-02] MEDS: chlordiazePOXIDE HCL 25 MG CAPSULE PO SCH ×3 (05:17→16:57)
[2017-05-02] MEDS: CYCLOBENZAPRINE HCL 10 MG TABLET (FP) PO PRN (05:19)
[2017-05-02] MEDS ORDERED: cloNIDine HCL 0.1 MG TABLET PO ONE (07:35)
[2017-05-02] MEDS ORDERED: METHADONE HCL 5 MG TABLET (FOR DETOX USE ONLY) PO ONE (10:00)
--- NOTE | 2017-05-02 10:06 | PN ---
S CIWA - CIWA Score Nausea/Vomitin Muscle Tremors: 3 (l) Anxiety: 3 Agitation: 2 Paroxysmal Sweats: 1-Minimal Palms Moist Orientation: 0-Oriented Tacttile Disturbances: 1-Very Mild Itch/Numbness Auditory Disturbances: 1-Very Mild Visual Disturbances: 1-Very Mild Sensitivity Headache: 2-Mild CIWA-Ar Total Score: 17 [facility] COWS - Scale Resting Pulse: 0= [place] 80 or Below Sweatin= Chills/Flushing Restless Observation: 3= Extraneous Movement Pupil Size: 1= Pupils >than Normal Bone or Joint Aches: 2= Severe Diffuse Aches Runny Nose/ Eye Tearin= Nasal Congestion GI Upset > 30mins: 2= Nausea/Diarrhea Tremor Observation of Outstretched Hands: 2= Slight Tremor Visible Yawning Observation: 1= 1-2x During Session Anxiety or Irritability: 2=Irritable/Anxious Goose Flesh Skin: 0=Smooth Skin COWS Score: 15 S Progress Note (SOAP) Subjective: alert,irritable,anxious,interrupted sleep,pain in the body and back,tremor Objective: 05/02/17 10:11 Vital Signs Temperature 97.9 F 05/02/17 06:00 Pulse Rate 59 L 05/02/17 06:00 Respiratory Rate 16 05/02/17 06:00 Blood Pressure 154/78 05/02/17 06:00 O2 Sat by Pulse Oximetry (%) Laboratory Last Values WBC 7.2 K/mm3 (4.0-10.0) D 05/01/17 06:30 RBC 4.06 M/mm3 (3.60-5.2) 05/01/17 06:30 Hgb 12.4 GM/dL (10.7-15.3) 05/01/17 06:30 Hct 37.8 % (32.4-45.2) 05/01/17 06:30 MCV 93.1 fl (80-96) 05/01/17 06:30 MCH 30.5 pg (25.7-33.7) 05/01/17 06:30 MCHC 32.7 g/dl (32.0-36.0) 05/01/17 06:30 RDW 13.7 % (11.6-15.6) 05/01/17 06:30 Plt Count 342 K/MM3 (134-434) D 05/01/17 06:30 MPV 9.1 fl (7.5-11.1) 05/01/17 06:30 Sodium 143 mmol/L (136-145) 05/01/17 06:30 Potassium 4.0 mmol/L (3.5-5.1) 05/01/17 06:30 Chloride 107 mmol/L (98-107) 05/01/17 06:30 Carbon Dioxide 31 mmol/L (21-32) 05/01/17 06:30 Anion Gap 5 (8-16) L 05/01/17 06:30 BUN 11 mg/dL (7-18) 05/01/17 06:30 Creatinine 0.8 mg/dL (0.55-1.02) 05/01/17 06:30 Creat Clearance w eGFR > 60 (>60) 05/01/17 06:30 Random Glucose 113 mg/dL (74-106) H 05/01/17 06:30 Calcium 9.3 mg/dL (8.5-10.1) 05/01/17 06:30 Total Bilirubin 0.4 mg/dL (0.2-1.0) 05/01/17 06:30 AST 14 U/L (15-37) L D 05/01/17 06:30 ALT 17 U/L (12-78) D 05/01/17 06:30 Alkaline Phosphatase 64 U/L (45-117) 05/01/17 06:30 Total Protein 6.3 g/dl (6.4-8.2) L 05/01/17 06:30 Albumin 2.7 g/dl (3.4-5.0) L 05/01/17 06:30 RPR Titer Nonreactive (NONREACTIVE) 05/01/17 06:30 Assessment: 05/02/17 10:12 withdrawal symptom Plan: continue detox,fasting glucose in am
[2017-05-02] MEDS: PRENATAL VITAMINS W/ FOLIC ACID TABLET (FP) PO SCH (10:21)
[2017-05-02] MEDS: ARIPiprazole 2 MG TABLET PO SCH (10:21)
[2017-05-02] MEDS: HYDROCHLOROTHIAZIDE 25 MG TABLET (FP) PO SCH (10:21)
[2017-05-02] MEDS: VENLAFAXINE HCL 150 MG E.R. CAPSULE PO SCH (10:21)
[2017-05-02] MEDS: NICOTINE 21 MG/24 HOURS TOPICAL PATCH TD SCH (10:22)
[2017-05-02] MEDS: cloNIDine HCL 0.1 MG TABLET PO SCH ×2 (10:26→22:06)
[2017-05-02] MEDS: chlordiazePOXIDE 5 MG CAPSULE PO SCH (22:06)
[2017-05-02] MEDS: THIAMINE HCL 100 MG TABLET (FP) PO SCH (22:06)
[2017-05-03] MEDS: chlordiazePOXIDE 5 MG CAPSULE PO SCH ×3 (05:13→17:14)
[2017-05-03] MEDS ORDERED: METHADONE HCL 5 MG TABLET (FOR DETOX USE ONLY) PO ONE (10:00)
--- NOTE | 2017-05-03 10:07 | PN ---
S Progress Note (SOAP) Subjective: nausea, sweats, interrupted sleep, anxiety, trmeors, body aches remain, fatigue Objective: 05/03/17 10:06 Vital Signs - 8 hr 05/03/17 05/03/17 05/03/17 03:30 06:22 09:47 Temperature 96.3 F L 97.9 F Pulse Rate 50 L 66 Respiratory 18 16 18 Rate Blood Pressure 134/60 108/75 Laboratory Tests 05/01/17 05/01/17 05/01/17 06:30 06:30 06:30 WBC 7.2 D RBC 4.06 Hgb 12.4 Hct 37.8 MCV 93.1 MCH 30.5 MCHC 32.7 RDW 13.7 Plt Count 342 D MPV 9.1 Sodium 143 Potassium 4.0 Chloride 107 Carbon Dioxide 31 Anion Gap 5 L BUN 11 Creatinine 0.8 Creat Clearance w eGFR > 60 Random Glucose 113 H Calcium 9.3 Total Bilirubin 0.4 AST 14 L D ALT 17 D Alkaline Phosphatase 64 Total Protein 6.3 L Albumin 2.7 L RPR Titer Nonreactive 05/03/17 10:06 no u/a Assessment: 05/03/17 10:07 withdrawal sx, absent u/a body aches remain Plan: cont detox, fluids, encoruage ambulation, repeat u/a, symptomatic relief of withdrawal
[2017-05-03] MEDS: PRENATAL VITAMINS W/ FOLIC ACID TABLET (FP) PO SCH (10:18)
[2017-05-03] MEDS: HYDROCHLOROTHIAZIDE 25 MG TABLET (FP) PO SCH (10:18)
[2017-05-03] MEDS: NICOTINE 21 MG/24 HOURS TOPICAL PATCH TD SCH (10:19)
[2017-05-03] MEDS: MAGNESIUM HYDROX 2400MG/30ML ORAL SUSPENSION 30 ML CUP PO PRN (10:19)
[2017-05-03] MEDS: VENLAFAXINE HCL 150 MG E.R. CAPSULE PO SCH (10:19)
[2017-05-03] MEDS: ARIPiprazole 2 MG TABLET PO SCH (10:20)
[2017-05-03] MEDS: cloNIDine HCL 0.1 MG TABLET PO SCH (10:20)
[2017-05-03] MEDS: NAPROXEN 500 MG TABLET (FP) PO SCH ×2 (11:29→22:15)
[2017-05-03] MEDS: GABAPENTIN 100 MG CAPSULE (FP) PO SCH ×2 (13:04→22:15)
[2017-05-03] MEDS: chlordiazePOXIDE HCL 10 MG CAPSULE PO SCH (22:15)
[2017-05-03] MEDS: ZOLPIDEM TARTRATE 10 MG TABLET (PARK CARE ONLY) PO PRN (22:15)
[2017-05-03] MEDS: THIAMINE HCL 100 MG TABLET (FP) PO SCH (22:15)
[2017-05-04] MEDS: GABAPENTIN 100 MG CAPSULE (FP) PO SCH ×3 (05:50→22:13)
[2017-05-04] MEDS: chlordiazePOXIDE HCL 10 MG CAPSULE PO SCH ×3 (05:50→17:55)
[2017-05-04] MEDS: NICOTINE 21 MG/24 HOURS TOPICAL PATCH TD SCH (10:00)
[2017-05-04] MEDS ORDERED: METHADONE HCL 10 MG TABLET (FOR DETOX USE ONLY) PO ONE (10:00)
[2017-05-04] MEDS: HYDROCHLOROTHIAZIDE 25 MG TABLET (FP) PO SCH (11:54)
[2017-05-04] MEDS: NAPROXEN 500 MG TABLET (FP) PO SCH ×2 (11:57→22:13)
[2017-05-04] MEDS: ARIPiprazole 2 MG TABLET PO SCH (11:58)
[2017-05-04] MEDS: VENLAFAXINE HCL 150 MG E.R. CAPSULE PO SCH (11:58)
[2017-05-04] MEDS: PRENATAL VITAMINS W/ FOLIC ACID TABLET (FP) PO SCH (12:04)
--- NOTE | 2017-05-04 13:04 | PN ---
[facility] Progress Note (SOAP) Subjective: nausea, sweats, interrupted sleep, anxiety, tremros Objective: 05/04/17 13:04 Vital Signs 05/04/17 05/04/17 06:34 09:29 Temperature 97.4 F L 98.1 F Pulse Rate 54 L 56 L Respiratory 16 18 Rate Blood Pressure 113/67 104/69 Laboratory Tests 05/01/17 05/01/17 05/01/17 06:30 06:30 06:30 WBC 7.2 D RBC 4.06 Hgb 12.4 Hct 37.8 MCV 93.1 MCH 30.5 MCHC 32.7 RDW 13.7 Plt Count 342 D MPV 9.1 Sodium 143 Potassium 4.0 Chloride 107 Carbon Dioxide 31 Anion Gap 5 L BUN 11 Creatinine 0.8 Creat Clearance w eGFR > 60 Random Glucose 113 H Fasting Glucose Calcium 9.3 Total Bilirubin 0.4 AST 14 L D ALT 17 D Alkaline Phosphatase 64 Total Protein 6.3 L Albumin 2.7 L RPR Titer Nonreactive 05/03/17 07:00 WBC RBC Hgb Hct MCV MCH MCHC RDW Plt Count MPV Sodium Potassium Chloride Carbon Dioxide Anion Gap BUN Creatinine Creat Clearance w eGFR Random Glucose Fasting Glucose 114 H Calcium Total Bilirubin AST ALT Alkaline Phosphatase Total Protein Albumin RPR Titer Assessment: 05/04/17 13:04 withdrawawl sx, u/a results pending Plan: cont detox, check u/a
[2017-05-04 16:11] LABS: URINE APPEARANCE CLOUDY; URINE BILIRUBIN NEGATIVE (NEGATIVE); URINE BLOOD 1+ (NEGATIVE); URINE COLOR YELLOW; URINE GLUCOSE (UA) NEGATIVE (NEGATIVE); URINE KETONE NEGATIVE (NEGATIVE); URINE NITRITE POSITIVE (NEGATIVE); URINE PROTEIN NEGATIVE (NEGATIVE); URINE UROBILINOGEN NEGATIVE mg/dL (0.2-1.0)
[2017-05-04 16:22] LABS: URINE LEUK ESTERASE 3+ (NEGATIVE)
[2017-05-04 16:46] LABS: URINE BACTERIA MODERATE /hpf (NONE SEEN); URINE RBC 34 /hpf (0-3); URINE WBC 207 /hpf (3-5)
[2017-05-04] MEDS: THIAMINE HCL 100 MG TABLET (FP) PO SCH (22:13)
[2017-05-04] MEDS: ZOLPIDEM TARTRATE 10 MG TABLET (PARK CARE ONLY) PO PRN (22:14)
[2017-05-05] MEDS ORDERED: cloNIDine HCL 0.1 MG TABLET PO ONE ×2 (05:06→13:15)
[2017-05-05] MEDS: MAG HYDROX/AL HYDROX/SIMETH 30 ML UNIT-DOSE CUP PO PRN ×2 (05:07→12:10)
[2017-05-05] MEDS: GABAPENTIN 100 MG CAPSULE (FP) PO SCH ×3 (05:09→22:54)
[2017-05-05] MEDS ORDERED: METHADONE HCL 5 MG TABLET (FOR DETOX USE ONLY) PO ONE (06:00)
--- NOTE | 2017-05-05 08:15 | DS ---
[facility] Detox Discharge Summary Admission Date: 04/30/17 Discharge Date: 05/05/17 - History Present History: Alcohol Dependence, Cocaine Dependence, Opioid Dependence Additional Comments: FOLLOW UP WITH AFTER CARE PROGRAM ARRANGEMENT Pertinent Past History: ASTHMA HYPERTENSION HYPERLIPIDEMIA BIPOLAR DISORDER NICOTINE DEPENDENCE - Physical Exam Results Vital Signs: Vital Signs Temperature 97.7 F 05/05/17 06:00 Pulse Rate 65 05/05/17 06:00 Respiratory Rate 20 05/05/17 06:00 Blood Pressure 141/86 05/05/17 06:00 O2 Sat by Pulse Oximetry (%) Pertinent Admission Physical Exam Findings: WITHDRAWAL SYMPTOM - Treatment Hospital Course: Detox Protocol Followed, Detoxed Safely, Responded well, Discharged Condition Good Patient has Accepted a Rehab Referral to: [facility]ED - Medication Discharge Medications: Ambulatory Orders Albuterol Sulfate Inhaler - [Ventolin Hfa Inhaler -] 1 - 2 inh PO Q4H PRN Amlodipine Besylate [Norvasc -] 10 mg PO DAILY 11/18/16 Diphenhydramine [Benadryl -] 50 mg PO HS 11/18/16 Fluticasone/Salmeterol [Advair 250-50 Diskus] 1 each IH DAILY 11/18/16 Pravastatin Sodium [Pravachol (Nf)] 40 mg PO HS 11/18/16 Venlafaxine HCl ER [Effexor Xr -] 150 mg PO DAILY 11/18/16 Aripiprazole [Abilify -] 2 mg PO DAILY #30 tablet 05/01/17 Venlafaxine HCl ER [Effexor Xr -] 150 mg PO DAILY #30 cap 05/01/17 - Diagnosis (1) Opioid dependence with withdrawal Current Visit: No Status: Chronic (2) Alcohol dependence with uncomplicated withdrawal Current Visit: Yes Status: Chronic (3) Asthma Current Visit: Yes Status: Chronic Qualifiers: Asthma severity: mild intermittent Asthma complication type: uncomplicated Qualified Code(s): J45.20 - Mild intermittent asthma, uncomplicated (4) Hypertension Current Visit: Yes Status: Chronic Qualifiers: Hypertension type: essential hypertension Qualified Code(s): I10 - Essential (primary) hypertension (5) Nicotine dependence Current Visit: Yes Status: Chronic Qualifiers: Nicotine product type: cigarettes Substance use status: uncomplicated Qualified Code(s): F17.210 - Nicotine dependence, cigarettes, uncomplicated (6) Bipolar disorder Current Visit: Yes Status: Suspected Qualifiers: Active/Remission status: remission status unspecified Qualified Code (s): F31.9 - Bipolar disorder, unspecified (7) Hyperlipidemia Current Visit: No Status: Chronic Qualifiers: Hyperlipidemia type: pure hypercholesterolemia Qualified Code(s): E78.00 - Pure hypercholesterolemia, unspecified; E78.0 - Pure hypercholesterolemia (8) UTI (urinary tract infection) Current Visit: Yes Status: Acute - AMA Did Patient Leave Against Medical Advice: No
[2017-05-05] MEDS ORDERED: TRIMETHOBENZAMIDE HCL 200MG/2ML INJ IM PRN (08:18)
[2017-05-05] MEDS ORDERED: TRIMETHOBENZAMIDE HCL 200MG/2ML INJ IM ONE (08:19)
--- NOTE | 2017-05-05 08:21 | PN ---
[facility] Progress Note Note: ADDENDUM VOMTING TIGAN 200 MGS IM NOW
--- NOTE | 2017-05-05 09:13 | EKG ---
Test Reason : Blood Pressure : / mmHG Vent. Rate : 063 BPM Atrial Rate : 063 BPM P-R Int : 144 ms QRS Dur : 080 ms QT Int : 412 ms P-R-T Axes : -11 021 092 degrees QTc Int : 421 ms NORMAL SINUS RHYTHM WITH SINUS ARRHYTHMIA NONSPECIFIC ST AND T WAVE ABNORMALITY ABNORMAL ECG WHEN COMPARED WITH ECG OF 30-APR-2017 23:19, ST ELEVATION NOW PRESENT IN ANTERIOR LEADS Confirmed by MADISON LINDSEY, MANJIT ([id number]) on 05/05/2017 9:12:45 AM Referred By: Bay Presley Confirmed By:MANJIT WALLACE MD
[2017-05-05] MEDS: PRENATAL VITAMINS W/ FOLIC ACID TABLET (FP) PO SCH (09:51)
[2017-05-05] MEDS: SULFAMETHOXAZOLE/TRIMETHOPRIM 800MG/160MG D.S. TABLET PO SCH ×2 (09:51→22:54)
[2017-05-05] MEDS: HYDROCHLOROTHIAZIDE 25 MG TABLET (FP) PO SCH (09:51)
[2017-05-05] MEDS: MAGNESIUM HYDROX 2400MG/30ML ORAL SUSPENSION 30 ML CUP PO PRN (09:52)
--- NOTE | 2017-05-05 09:59 | PN ---
[facility] Progress Note Note: ADDENDUM PATIENT FEEL WEAK,VOMITING,WILL HOLD ON DISCHARGE TODAY, CLOSE MONITORING POSSIBLE DISCHARGE IN AM
[2017-05-05] MEDS: NAPROXEN 500 MG TABLET (FP) PO SCH ×2 (11:00→22:54)
[2017-05-05 11:44] LABS: MCH 30.3 pg (25.7-33.7); MCHC 33.1 g/dl (32.0-36.0); MEAN CELL VOLUME 91.5 fl (80-96); MEAN PLT VOLUME 8.9 fl (7.5-11.1); PLATELET COUNT 423 K/MM3 (134-434); RDW 13.8 % (11.6-15.6)
[2017-05-05 12:05] LABS: ALK PHOS 99 U/L (45-117); AMYLASE 134 U/L (25-115); ANION GAP 9 (8-16); BILIRUBIN,TOTAL 0.6 mg/dL (0.2-1.0); CALCIUM 10.1 mg/dL (8.5-10.1); CO2 30 mmol/L (21-32); GLUCOSE,RANDOM 117 mg/dL (74-106); SGOT/AST 20 U/L (15-37); SGPT/ALT 20 U/L (12-78); TOT PROT 8.8 g/dl (6.4-8.2)
[2017-05-05] MEDS: VENLAFAXINE HCL 150 MG E.R. CAPSULE PO SCH (12:09)
[2017-05-05] MEDS: NICOTINE 21 MG/24 HOURS TOPICAL PATCH TD SCH (12:10)
[2017-05-05] MEDS: ARIPiprazole 2 MG TABLET PO SCH (12:56)
[2017-05-05] MEDS: CYCLOBENZAPRINE HCL 10 MG TABLET (FP) PO PRN (14:04)
--- NOTE | 2017-05-05 15:33 | PN ---
[facility] Progress Note Note: patient has severe abdominal pain associated with nausea and vomiting dehydrated with dry lip and mucosa chest and fua unremarkable Laboratory Last Values WBC 9.0 K/mm3 (4.0-10.0) 05/05/17 10:45 RBC 5.42 M/mm3 (3.60-5.2) H D 05/05/17 10:45 Hgb 16.5 GM/dL (10.7-15.3) H D 05/05/17 10:45 Hct 49.7 % (32.4-45.2) H D 05/05/17 10:45 MCV 91.5 fl (80-96) 05/05/17 10:45 MCH 30.3 pg (25.7-33.7) 05/05/17 10:45 MCHC 33.1 g/dl (32.0-36.0) 05/05/17 10:45 RDW 13.8 % (11.6-15.6) 05/05/17 10:45 Plt Count 423 K/MM3 (134-434) D 05/05/17 10:45 MPV 8.9 fl (7.5-11.1) 05/05/17 10:45 Sodium 135 mmol/L (136-145) L 05/05/17 10:45 Potassium 4.3 mmol/L (3.5-5.1) 05/05/17 10:45 Chloride 96 mmol/L (98-107) L D 05/05/17 10:45 Carbon Dioxide 30 mmol/L (21-32) 05/05/17 10:45 Anion Gap 9 (8-16) 05/05/17 10:45 BUN 27 mg/dL (7-18) H D 05/05/17 10:45 Creatinine 1.0 mg/dL (0.55-1.02) D 05/05/17 10:45 Creat Clearance w eGFR 56.37 (>60) 05/05/17 10:45 Random Glucose 117 mg/dL (74-106) H 05/05/17 10:45 Fasting Glucose 114 mg/dL (70-105) H 05/03/17 07:00 Calcium 10.1 mg/dL (8.5-10.1) 05/05/17 10:45 Total Bilirubin 0.6 mg/dL (0.2-1.0) D 05/05/17 10:45 AST 20 U/L (15-37) D 05/05/17 10:45 ALT 20 U/L (12-78) 05/05/17 10:45 Alkaline Phosphatase 99 U/L (45-117) D 05/05/17 10:45 Total Protein 8.8 g/dl (6.4-8.2) H D 05/05/17 10:45 Albumin 4.0 g/dl (3.4-5.0) D 05/05/17 10:45 Total Amylase 134 U/L (25-115) H 05/05/17 10:45 Lipase 128 U/L (73-393) 05/05/17 10:45 Urine Color Yellow 05/04/17 11:20 Urine Appearance Cloudy 05/04/17 11:20 Urine pH 7.0 (5.0-8.0) D 05/04/17 11:20 Ur Specific [place] 1.010 (1.005-1.025) 05/04/17 11:20 Urine Protein Negative (NEGATIVE) 05/04/17 11:20 Urine Glucose (UA) Negative (NEGATIVE) 05/04/17 11:20 Urine Ketones Negative (NEGATIVE) 05/04/17 11:20 Urine Blood 1+ (NEGATIVE) H 05/04/17 11:20 Urine Nitrite Positive (NEGATIVE) 05/04/17 11:20 Urine Bilirubin Negative (NEGATIVE) 05/04/17 11:20 Urine Urobilinogen Negative mg/dL (0.2-1.0) 05/04/17 11:20 Ur Leukocyte Esterase 3+ (NEGATIVE) H 05/04/17 11:20 Urine RBC 34 /hpf (0-3) 05/04/17 11:20 Urine WBC 207 /hpf (3-5) 05/04/17 11:20 Ur Epithelial Cells Many /hpf (FEW) 05/04/17 11:20 Urine Bacteria Moderate /hpf (NONE SEEN) 05/04/17 11:20 RPR Titer Nonreactive (NONREACTIVE) 05/01/17 06:30 bp 185/98,p90,r20,t97.5 patient to be transfer to [facility] for evaluation and treatment spoke with dr isak Parekh patient to be transported by [facility] dx opioid dependence with withdrawal symptom cocaine dependence alcohol dependence with withdrawal asthma uncontrolled hypertension hyperlipidemia dehydration r/o pancreatititis abdominal pain severe etiology r/o urosepsis bipolar disorder
--- NOTE | 2017-05-05 23:07 | PN ---
[facility] Progress Note Note: informed patient return from ER, treated with constipation and uti, begin keflex 500 mg q6h x 10 days + increase oral fluid
[2017-05-05] MEDS: THIAMINE HCL 100 MG TABLET (FP) PO SCH (23:18)
[2017-05-05] MEDS: CEPHALEXIN MONOHYDRATE 500 MG CAPSULE (UD) PO SCH (23:56)
[2017-05-06] MEDS: GABAPENTIN 100 MG CAPSULE (FP) PO SCH (06:01)
[2017-05-06] MEDS: CEPHALEXIN MONOHYDRATE 500 MG CAPSULE (UD) PO SCH ×2 (06:01→12:27)
--- NOTE | 2017-05-06 10:07 | DS ---
[facility] Detox Discharge Summary Admission Date: 04/30/17 Discharge Date: 05/06/17 - History Present History: Alcohol Dependence, Opioid Dependence - Physical Exam Results Vital Signs: Vital Signs Temperature 97.7 F 05/06/17 06:00 Pulse Rate 83 05/06/17 06:00 Respiratory Rate 16 05/06/17 06:00 Blood Pressure 143/90 05/06/17 06:00 O2 Sat by Pulse Oximetry (%) Laboratory Tests 05/01/17 05/01/17 05/01/17 06:30 06:30 06:30 WBC 7.2 D RBC 4.06 Hgb 12.4 Hct 37.8 MCV 93.1 MCH 30.5 MCHC 32.7 RDW 13.7 Plt Count 342 D MPV 9.1 Sodium 143 Potassium 4.0 Chloride 107 Carbon Dioxide 31 Anion Gap 5 L BUN 11 Creatinine 0.8 Creat Clearance w eGFR > 60 Random Glucose 113 H Fasting Glucose Calcium 9.3 Total Bilirubin 0.4 AST 14 L D ALT 17 D Alkaline Phosphatase 64 Total Protein 6.3 L Albumin 2.7 L Total Amylase Lipase Urine Color Urine Appearance Urine pH Ur Specific [place] Urine Protein Urine Glucose (UA) Urine Ketones Urine Blood Urine Nitrite Urine Bilirubin Urine Urobilinogen Ur Leukocyte Esterase Urine RBC Urine WBC Ur Epithelial Cells Urine Bacteria RPR Titer Nonreactive 05/03/17 05/04/17 05/05/17 07:00 11:20 10:45 WBC 9.0 RBC 5.42 H D Hgb 16.5 H D Hct 49.7 H D MCV 91.5 MCH 30.3 MCHC 33.1 RDW 13.8 Plt Count 423 D MPV 8.9 Sodium Potassium Chloride Carbon Dioxide Anion Gap BUN Creatinine Creat Clearance w eGFR Random Glucose Fasting Glucose 114 H Calcium Total Bilirubin AST ALT Alkaline Phosphatase Total Protein Albumin Total Amylase Lipase Urine Color Yellow Urine Appearance Cloudy Urine pH 7.0 D Ur Specific [place] 1.010 Urine Protein Negative Urine Glucose (UA) Negative Urine Ketones Negative Urine Blood 1+ H Urine Nitrite Positive Urine Bilirubin Negative Urine Urobilinogen Negative Ur Leukocyte Esterase 3+ H Urine RBC 34 Urine WBC 207 Ur Epithelial Cells Many Urine Bacteria Moderate RPR Titer 05/05/17 10:45 WBC RBC Hgb Hct MCV MCH MCHC RDW Plt Count MPV Sodium 135 L Potassium 4.3 Chloride 96 L D Carbon Dioxide 30 Anion Gap 9 BUN 27 H D Creatinine 1.0 D Creat Clearance w eGFR 56.37 Random Glucose 117 H Fasting Glucose Calcium 10.1 Total Bilirubin 0.6 D AST 20 D ALT 20 Alkaline Phosphatase 99 D Total Protein 8.8 H D Albumin 4.0 D Total Amylase 134 H Lipase 128 Urine Color Urine Appearance Urine pH Ur Specific [place] Urine Protein Urine Glucose (UA) Urine Ketones Urine Blood Urine Nitrite Urine Bilirubin Urine Urobilinogen Ur Leukocyte Esterase Urine RBC Urine WBC Ur Epithelial Cells Urine Bacteria RPR Titer Pertinent Admission Physical Exam Findings: withdrawal sx - Medication Discharge Medications: Ambulatory Orders Amlodipine Besylate [Norvasc -] 10 mg PO DAILY 11/18/16 Pravastatin Sodium [Pravachol -] 40 mg PO HS 11/18/16 Venlafaxine HCl ER [Effexor Xr -] 150 mg PO DAILY 11/18/16 Aripiprazole [Abilify -] 2 mg PO DAILY #30 tablet 05/01/17 Venlafaxine HCl ER [Effexor Xr -] 150 mg PO DAILY #30 cap 05/01/17 Albuterol Sulfate Inhaler - [Ventolin HFA Inhaler -] 2 inh IH Q4H PRN #1 inh 09/20 Cephalexin [Keflex] 500 mg PO QID #40 capsule 05/05/17 Fluticasone/Salmeterol [Advair 250-50 Diskus] 2 each IH BID #1 inh 05/05/17 Gabapentin [Neurontin -] 100 mg PO TID #90 cap 05/05/17 Hydrochlorothiazide [Hctz -] 25 mg PO DAILY #30 tablet 05/05/17 Sulfamethoxazole/Trimethoprim [Bactrim DS -] 1 each PO BID #20 tablet 05/05/17 - Diagnosis (1) Alcohol dependence with uncomplicated withdrawal Current Visit: Yes Status: Chronic (2) Asthma Current Visit: Yes Status: Chronic Qualifiers: Asthma severity: mild intermittent Asthma complication type: uncomplicated Qualified Code(s): J45.20 - Mild intermittent asthma, uncomplicated (3) Hypertension Current Visit: Yes Status: Chronic Qualifiers: Hypertension type: essential hypertension Qualified Code(s): I10 - Essential (primary) hypertension (4) Nicotine dependence Current Visit: Yes Status: Chronic Qualifiers: Nicotine product type: cigarettes Substance use status: uncomplicated Qualified Code(s): F17.210 - Nicotine dependence, cigarettes, uncomplicated (5) Bipolar disorder Current Visit: Yes Status: Suspected Qualifiers: Active/Remission status: remission status unspecified Qualified Code (s): F31.9 - Bipolar disorder, unspecified (6) Constipation Current Visit: No Status: Resolved (7) Substance induced mood disorder Current Visit: No Status: Acute (8) UTI (urinary tract infection) Current Visit: No Status: Acute Qualifiers: Urinary tract infection type: site unspecified (9) Hyperlipidemia Current Visit: No Status: Chronic Qualifiers: Hyperlipidemia type: pure hypercholesterolemia Qualified Code(s): E78.00 - Pure hypercholesterolemia, unspecified; E78.0 - Pure hypercholesterolemia (10) Opioid dependence with withdrawal Current Visit: Yes Status: Chronic - AMA Did Patient Leave Against Medical Advice: No
[2017-05-06] MEDS: HYDROCHLOROTHIAZIDE 25 MG TABLET (FP) PO SCH (11:02)
[2017-05-06] MEDS: SULFAMETHOXAZOLE/TRIMETHOPRIM 800MG/160MG D.S. TABLET PO SCH (11:02)
[2017-05-06] MEDS: NAPROXEN 500 MG TABLET (FP) PO SCH (11:02)
[2017-05-06] MEDS: PRENATAL VITAMINS W/ FOLIC ACID TABLET (FP) PO SCH (11:02)
[2017-05-06] MEDS: ARIPiprazole 2 MG TABLET PO SCH (11:03)
[2017-05-06] MEDS: VENLAFAXINE HCL 150 MG E.R. CAPSULE PO SCH (11:03)
[2017-05-06] MEDS: NICOTINE 21 MG/24 HOURS TOPICAL PATCH TD SCH (11:03)
[2017-05-06 14:32] VITALS: BP 103/51; PULSE 99; TEMP 97.9
== END 2017-05-06 02:46 | disposition home or self-care (01) | DRG 773 ==
LOC: YASAS 23:09 → Y6N 23:10
PROVIDERS: ADMIT Internal Medicine Addiction Medicine; ATTEND Internal Medicine Addiction Medicine
PROC: HZ2ZZZZ Detoxification Services for Substance Abuse Treatment (ICD-10-PCS; principal; 2017-04-30)
DX: F11.23 Opioid dependence with withdrawal (principal); F10.230 Alcohol dependence with withdrawal, uncomplicated; F17.210 Nicotine dependence, cigarettes, uncomplicated; F31.9 Bipolar disorder, unspecified; F19.24 Other psychoactive substance dependence with psychoactive substance-induced mood disorder; F41.9 Anxiety disorder, unspecified; I10 Essential (primary) hypertension; J45.20 Mild intermittent asthma, uncomplicated; K59.00 Constipation, unspecified; N39.0 Urinary tract infection, site not specified; E78.5 Hyperlipidemia, unspecified; E86.0 Dehydration; R10.9 Unspecified abdominal pain; R00.1 Bradycardia, unspecified; Z91.5 Personal history of self-harm
CPT/HCPCS: 36415; 71020-TC; 74020-TC; 80053; 81003; 81015; 82150; 82947; 83690; 85027; 86593; 93005; 93010

== ENCOUNTER 2017-05-05 16:21 | Emergency (ER) | payer OTHER ==
--- NOTE | 2017-05-05 16:30 | PDOC ---
History of Present Illness <Adriano Montana - Last Filed: 05/05/17 18:54> - General History Source: Patient Exam Limitations: No Limitations - History of Present Illness Initial Comments: 05/05/17 17:27 The patient is a 61 year old female with a significant PMH of hypertension and heroin, cocaine, and alcohol use who presents to the emergency department with diffuse abdominal pain beginning approximately this morning. The patient reports associated nausea, vomiting, and headache with her abdominal pain. The patient notes taking Aspirin to relieve her symptoms to no effect. The patient reports undergoing detox at [facility] for the past 5 days for the toxic habits noted above. The patient reports not eating or having a bowel movement for the past week. The patient denies chest pain, shortness of breath, and dizziness. Denies fever, chills, diarrhea. Denies dysuria, frequency, urgency and hematuria. Allergies: NKA Past surgical history: None Social history: Cigarette, alcohol, heroin, and cocaine use 05/05/17 18:57 <Flaco Munson - Last Filed: 05/05/17 18:57> - General Stated Complaint: ABD PAIN Time Seen by Provider: 05/05/17 16:30 Past History - Past Medical History Anemia: No Asthma: Yes Cancer: No Cardiac Disorders: No CVA: No COPD: No CHF: No Dementia: No Diabetes: No GI Disorders: No Disorders: No HTN: Yes Hypercholesterolemia: Yes Kidney Stones: No Liver Disease: No Suicide Attempt (Hx): Yes Seizures: No Thyroid Disease: No - Surgical History Abdominal Surgery: No Appendectomy: No Cardiac Surgery: No Cholecystectomy: No Lung Surgery: No Neurologic Surgery: No Orthopedic Surgery: No - Reproductive History PID: No - Psycho/Social/Smoking Cessation Hx Anxiety: Yes Suicidal Ideation: Yes Smoking History: Current every day smoker Have you smoked in the past 12 months: Yes Number of Cigarettes Smoked Daily: 20 'Breaking Loose' booklet given: 04/30/17 Hx Alcohol Use: Yes Drug/Substance Use Hx: Yes Substance Use Type: Alcohol, Cocaine, Heroin Hx Substance Use Treatment: Yes <Adriano Montana - Last Filed: 05/05/17 18:54> <Flaco Munson - Last Filed: 05/05/17 18:57> - Past Medical History Allergies/Adverse Reactions: Allergies Allergy/AdvReac Type Severity Reaction Status Date / Time No Known Allergies Allergy Verified 05/01/17 00:13 Home Medications: Ambulatory Orders Amlodipine Besylate [Norvasc -] 10 mg PO DAILY 11/18/16 Pravastatin Sodium [Pravachol -] 40 mg PO HS 11/18/16 Venlafaxine HCl ER [Effexor Xr -] 150 mg PO DAILY 11/18/16 Aripiprazole [Abilify -] 2 mg PO DAILY #30 tablet 05/01/17 Venlafaxine HCl ER [Effexor Xr -] 150 mg PO DAILY #30 cap 05/01/17 Albuterol Sulfate Inhaler - [Ventolin HFA Inhaler -] 2 inh IH Q4H PRN #1 inh 09/20 Cephalexin [Keflex] 500 mg PO QID #40 capsule 05/05/17 Fluticasone/Salmeterol [Advair 250-50 Diskus] 2 each IH BID #1 inh 05/05/17 Gabapentin [Neurontin -] 100 mg PO TID #90 cap 05/05/17 Hydrochlorothiazide [Hctz -] 25 mg PO DAILY #30 tablet 05/05/17 Sulfamethoxazole/Trimethoprim [Bactrim DS -] 1 each PO BID #20 tablet 05/05/17 Review of Systems - Review of Systems Comments:: 05/05/17 17:28 GENERAL/CONSTITUTIONAL: (+) Reduced appetite. No fever or chills. No weakness. HEAD, EYES, EARS, NOSE AND THROAT: No change in vision. No ear pain or discharge. No sore throat. CARDIOVASCULAR: No chest pain or shortness of breath. RESPIRATORY: No cough, wheezing, or hemoptysis. GASTROINTESTINAL: (+) Nausea. (+) Vomiting. No diarrhea or constipation. GENITOURINARY: (+) No bowel movements for past week. No dysuria, frequency, or change in urination. MUSCULOSKELETAL: No joint or muscle swelling or pain. No neck or back pain. SKIN: No rash NEUROLOGIC: (+) Headache. No vertigo, loss of consciousness, or change in strength/sensation. ENDOCRINE: No increased thirst. No abnormal weight change. HEMATOLOGIC/LYMPHATIC: No anemia, easy bleeding, or history of blood clots. ALLERGIC/IMMUNOLOGIC: No hives or skin allergy. <Flaco Munson - Last Filed: 05/05/17 18:57> *Physical Exam - Vital Signs Last Vital Signs Temp Pulse Resp BP Pulse Ox 98.7 F 90 20 170/90 99 05/05/17 16:30 05/05/17 16:30 05/05/17 16:30 05/05/17 16:30 05/05/17 16:30 - Physical Exam Comments: 05/05/17 17:28 GENERAL: Awake, alert, and fully oriented, in no acute distress HEAD: No signs of trauma EYES: PERRLA, EOMI, sclera anicteric, conjunctiva clear ENT: Auricles normal inspection, hearing grossly normal, nares patent, oropharynx clear without exudates. Moist mucosa NECK: Normal ROM, supple, no lymphadenopathy, JVD, or masses LUNGS: Breath sounds equal, clear to auscultation bilaterally. No wheezes, and no crackles HEART: Regular rate and rhythm, normal S1 and S2, no murmurs, rubs or gallops ABDOMEN: Soft, nontender, normoactive bowel sounds. No guarding, no rebound. No masses EXTREMITIES: Normal range of motion, no edema. No clubbing or cyanosis. No cords, erythema, or tenderness NEUROLOGICAL: Cranial nerves II through XII grossly intact. Normal speech, normal gait SKIN: Warm, Dry, normal turgor, no rashes or lesions noted. <Flaco Munson - Last Filed: 05/05/17 18:57> ED Treatment Course - LABORATORY CBC & Chemistry Diagram: 05/05/17 16:50 05/05/17 17:52 <Adriano Montana - Last Filed: 05/05/17 18:54> - LABORATORY CBC & Chemistry Diagram: 05/05/17 16:50 05/05/17 17:52 - ADDITIONAL ORDERS Additional order review: Laboratory Results 05/05/17 16:35 Urine Color Lt. yellow Urine Appearance Sl cloudy Urine pH 7.5 Urine Protein 1+ H Urine Glucose (UA) Negative Urine Ketones Negative Urine Blood 1+ H Urine Nitrite Positive Urine Bilirubin Negative Urine Urobilinogen 0.2 Ur Leukocyte Esterase 1+ H D Urine RBC 11 Urine WBC 20 Ur Epithelial Cells Few Urine Bacteria Rare Hyaline Casts 3 Granular Casts 1 05/05/17 16:50 RBC 5.43 H MCV 90.2 MCHC 34.2 RDW 13.9 MPV 8.9 Neutrophils % 84.3 H Lymphocytes % 12.5 Monocytes % 2.7 L Eosinophils % 0.0 Basophils % 0.5 - Medications Given in the ED: ED Medications Discontinued Medications Generic Name Dose Route Start Last Admin Trade Name Derian PRN Reason Stop Dose Admin Dicyclomine HCl 20 mg 05/05/17 17:06 05/05/17 17:11 Bentyl - PO 05/05/17 17:07 20 mg ONCE ONE Administration Ondansetron HCl 4 mg 05/05/17 17:06 05/05/17 17:12 Zofran Odt - SL 05/05/17 17:07 4 mg ONCE ONE Administration <Flaco Munson - Last Filed: 05/05/17 18:57> *DC/Admit/Observation/Transfer - Discharge Dispostion Admit: No - Attestations Physician Attestion: 05/05/17 16:30 I, Dr. Adriano Montana, attest that this document has been prepared under my direction and personally reviewed by me in its entirety. I further attest, that it accurately reflects all work, treatment, procedures and medical decision -making performed by me. <Adriano Montana - Last Filed: 05/05/17 18:54> - Attestations Scribe Attestion: 05/05/17 17:29 Documentation prepared by Flaco Munson, acting as medical and scientific illustrator for Adriano Montana DO. <Flaco Munson - Last Filed: 05/05/17 18:57> Diagnosis at time of Disposition: Constipation Qualifiers: Constipation type: unspecified constipation type Qualified Code(s): K59.00 - Constipation, unspecified UTI (urinary tract infection) Qualifiers: Urinary tract infection type: site unspecified - Prescriptions Prescriptions: Cephalexin [Keflex] 500 mg PO QID #40 capsule - Patient Instructions Printed Discharge Instructions: DI for Urinary Tract Infection (UTI), DI for Constipation Additional Instructions: Amy - You have a urinary tract infection and you are constipated. Drink as much water as you can. Take the keflex for ten days. You should have a bowel movement after the magnesium citrate
[2017-05-05 16:34] VITALS: BMI 22.6
[2017-05-05] MEDS ORDERED: ONDANSETRON 4 MG/2 ML VIAL ONE (16:57)
[2017-05-05] MEDS ORDERED: DICYCLOMINE HCL 10 MG CAPSULE ONE (16:57)
[2017-05-05 17:06] LABS: BASOPHIL 0.5 % (0-2.0); MCH 30.9 pg (25.7-33.7); MCHC 34.2 g/dl (32.0-36.0); MEAN CELL VOLUME 90.2 fl (80-96); MEAN PLT VOLUME 8.9 fl (7.5-11.1); NEUTROPHILS 84.3 % (42.8-82.8); PLATELET COUNT 448 K/MM3 (134-434); RDW 13.9 % (11.6-15.6); WHITE BLOOD COUNT 9.2 K/mm3 (4.0-10.0)
[2017-05-05] MEDS ORDERED: DICYCLOMINE HCL 20 MG TABLET PO ONE (17:06)
[2017-05-05] MEDS ORDERED: ONDANSETRON *ODT* 4 MG TABLET SL ONE (17:06)
[2017-05-05 17:20] LABS: PH,URINE 7.5 (5.0-8.0); URINE APPEARANCE SL CLOUDY; URINE BILIRUBIN NEGATIVE (NEGATIVE); URINE BLOOD 1+ (NEGATIVE); URINE COLOR LT. YELLOW; URINE GLUCOSE (UA) NEGATIVE (NEGATIVE); URINE KETONE NEGATIVE (NEGATIVE); URINE NITRITE POSITIVE (NEGATIVE); URINE PROTEIN 1+ (NEGATIVE); URINE UROBILINOGEN 0.2 mg/dL (0.2-1.0)
[2017-05-05 17:21] LABS: URINE LEUK ESTERASE 1+ (NEGATIVE)
[2017-05-05 17:25] LABS: GRANULAR CASTS 1 /lpf; URINE BACTERIA RARE /hpf (NONE SEEN); URINE HYALINE CAST 3 /lpf; URINE RBC 11 /hpf (0-3); URINE WBC 20 /hpf (3-5)
[2017-05-05] MEDS ORDERED: MAGNESIUM CITRATE 300 ML BOTTLE PO ONE (18:24)
[2017-05-05 18:40] LABS: ALBUMIN 4.2 g/dl (3.4-5.0); ALK PHOS 97 U/L (45-117); ANION GAP 11 (8-16); BILIRUBIN,TOTAL 0.5 mg/dL (0.2-1.0); CALCIUM 10.1 mg/dL (8.5-10.1); CO2 32 mmol/L (21-32); CREATININE 0.9 mg/dL (0.55-1.02); GLUCOSE,RANDOM 148 mg/dL (74-106); SGOT/AST 26 U/L (15-37); SGPT/ALT 22 U/L (12-78); TOT PROT 8.9 g/dl (6.4-8.2)
[2017-05-05] MEDS ORDERED: MAGNESIUM CITRATE 300 ML BOTTLE ONE (18:42)
[2017-05-05] MEDS ORDERED: CEPHALEXIN MONOHYDRATE 500 MG CAPSULE (UD) PO ONE (18:51)
[2017-05-05] MEDS ORDERED: CEPHALEXIN MONOHYDRATE 250 MG CAPSULE (FP) ONE (18:58)
[2017-05-05 21:05] VITALS: BP 190/89; PULSE 81; TEMP 98.1
== END 2017-05-05 22:19 | disposition other institution (70) ==
LOC: JER 16:21
DX: N39.0 Urinary tract infection, site not specified (principal); K59.09 Other constipation; I10 Essential (primary) hypertension; F11.20 Opioid dependence, uncomplicated; F10.20 Alcohol dependence, uncomplicated; F14.20 Cocaine dependence, uncomplicated
CPT/HCPCS: 36415; 74000-TC; 80053; 81003; 81015; 85025; 87086; 99283-25